=== PATIENT | male | born 1965 | race Caucasian/White ===

== ENCOUNTER 2021-03-05 00:01 | Inpatient (IN) | payer MEDICAID, SELFPAY ==
[~2021-03-05] VITALS: Ht 180.3 cm; Wt 86.2 kg
--- NOTE | 2021-03-05 00:01 | NUR ---
Patient to ER bed tent1 to gown for evaluation. Side rails up. Report given to self.
[2021-03-05 00:21] VITALS: BP_SYST 127
[2021-03-05] MEDS ORDERED: DEXAMETHASONE SOD PHOSPHATE 4 MG/ML VIAL IVP ONE (02:00)
[2021-03-05] MEDS ORDERED: cefTRIAXone 1 GM IVPB PREMIX 50 ML IV ONE (02:00)
[2021-03-05] MEDS ORDERED: AZITHROMYCIN 250 MG TABLET PO ONE (02:00)
--- NOTE | 2021-03-05 02:10 | NUR ---
Patient to ER bed 8 to gown for evaluation. Side rails up. Report given to self. # 20 gauge angiocath placed to LAC. Use of asceptic technique. Opsite placed over site. Blood return noted. Flushed with 10 cc of normal saline. No evidence of infiltration noted. Patient tolerated well.
[2021-03-05 02:22] LABS: BASOPHILS % (AUTO) 0.3 % (0.0-2.0); HEMATOCRIT 46.1 % (36-54); LYMPHOCYTES # (AUTO) 0.7 K/uL (1.0-5.5); LYMPHOCYTES % (AUTO) 13.7 % (20.5-51.5); MEAN CORPUSCULAR HEMOGLOBIN 33 pg (27-31); MEAN CORPUSCULAR HGB CONC 35 % (32-36); MEAN CORPUSCULAR VOLUME 95 fL (79.0-98.0); MONOCYTES # (AUTO) 0.6 K/uL (0.0-1.0); MONOCYTES % (AUTO) 12.5 % (1.7-9.3); NEUTROPHILS # (AUTO) 3.6 K/uL (1.8-7.7); NEUTROPHILS % (AUTO) 73.5 % (40.0-70.0); PLATELET COUNT (AUTO) 200 K/uL (130-430); RED BLOOD CELL COUNT(AUTO) 4.86 MIL/uL (4.2-6.2); RED CELL DISTRIBUTION WIDTH 13.2 % (9.0-15.0); WHITE BLOOD COUNT (AUTO) 4.8 K/uL (4.8-10.8)
[2021-03-05 02:29] LABS: CALCIUM 8.8 mg/dL (8.4-11.0); CREATININE 1.07 mg/dL (0.55-1.30)
--- NOTE | 2021-03-05 02:30 | NUR ---
Medicated w/ Zithromycin 500mg po, Rocephin 1gm ivpb, Decadron 6mg ivp per MD orders. IV abx infusing with no s/s of infiltration at this time. Will cont to monitor and observe for any adverse reaction.
[2021-03-05 02:37] LABS: ALBUMIN 3.6 g/dL (3.4-4.8); TOTAL BILIRUBIN 0.2 mg/dL (0.0-1.0)
[2021-03-05 02:44] LABS: C-REACTIVE PROTEIN QUANT 7.8 mg/dL (0-0.5)
[2021-03-05 02:47] LABS: INR 0.9 (0.80-1.20); PROTHROMBIN TIME 9.9 SECS (9.5-12.5)
--- NOTE | 2021-03-05 03:42 | NUR ---
IVF 0.9% NS infusing with no s/s of infiltration at this time. Will cont to monitor and observe for any adverse reaction. Bed to low position sr up, continue to monitor.
[2021-03-05] MEDS ORDERED: NACL 0.9% 1,000 ML IV ONE (03:45)
[2021-03-05] MEDS ORDERED: ACETAMINOPHEN 325 MG TABLET PO ONE (05:00)
--- NOTE | 2021-03-05 05:06 | NUR ---
Medicated w/ tylenol 650mg per MD orders. IVF 0.9% NS infusing with no s/s of infiltration at this time. Will cont to monitor and observe for any adverse reaction. Bed to low position sr up. Patient medicated for h/a 11/16.
[2021-03-05] MEDS ORDERED: ACETAMINOPHEN 325 MG TABLET ONE (05:07)
--- NOTE | 2021-03-05 07:15 | NUR ---
report received from Anup REYNA. pt is currently sleeping on the [employer]. Current o2 sat is 94% on 2l nc. pt is admitted to tele unit. currently waiting for bed assignment
--- NOTE | 2021-03-05 08:10 | NUR ---
pt having breakfast in bed
--- NOTE | 2021-03-05 11:00 | NUR ---
pt is currently sleeping in bed
--- NOTE | 2021-03-05 17:00 | NUR ---
Pt transfered to hospital bed
--- NOTE | 2021-03-05 17:18 | NUR ---
Called dietary to request dinner tray for patient
--- NOTE | 2021-03-05 18:10 | NUR ---
pt is currently resting in bed.
--- NOTE | 2021-03-05 19:29 | NUR ---
report given to Jolanta Harmon. Pt is sleeping in bed
--- NOTE | 2021-03-05 20:00 | NUR ---
MEDICATIONS ADMINISTERED ORDERED.
[2021-03-05] MEDS: LEVOFLOXACIN IN DEXTROSE 5 % 100 ML IV SCH (20:08)
[2021-03-05] MEDS: ENOXAPARIN SODIUM 30 MG/0.3 ML SYRINGE SUBCUT SCH (20:09)
[2021-03-05] MEDS ORDERED: LEVOFLOXACIN IN DEXTROSE 5 % 100 ML IV ONE (20:11)
[2021-03-05] MEDS ORDERED: ENOXAPARIN SODIUM 30 MG/0.3 ML SYRINGE ONE (20:11)
--- NOTE | 2021-03-05 22:00 | NUR ---
DINNER PROVIDED TO PATIENT. PT TOLERATED WELL.
--- NOTE | 2021-03-06 | NUR ---
Patient resting quietly. No acute distress noted. Vital signs within normal range.
[2021-03-06] MEDS ORDERED: DECADRON 4 MG TABLET PO SCH (02:00)
[2021-03-06] MEDS ORDERED: DECADRON 4 MG TABLET ONE (02:15)
--- NOTE | 2021-03-06 02:22 | NUR ---
Transfer to TELE via ACLS protocol. Licensed nurse present. IV present no signs or symptoms of infiltration.
--- NOTE | 2021-03-06 02:37 | NUR ---
Admission Note Received patient from ER with diagnosis of SEPSIS, PNA. Initial Plan of Care discussed-patient verbalized understanding. Oriented to room, call light, pain management and safety.
[2021-03-06 02:58] VITALS: BP_SYST 119
--- NOTE | 2021-03-06 03:22 | NUR ---
CONSULTATION PAGED/CALLED Reason for Consultation: SEPSIS Person Who was Notified: ZACKARY Consulting Physician: JOHN CHAVARRIA POWER PLANT OPERATOR APPRENTICE Liability Claims Examiner Specialty: Ordering Physician: Raudel MUNOZ
--- NOTE | 2021-03-06 06:22 | NUR ---
CLOSING NOTE PATIENT IN BED, SLEEPING, NO S/S OF ACUTE DISTRESS NOTED. BREATHING EVEN AND UNLABORED. HOB RAISED. IV SITE PATENT. NO S/S OF INFILTRATION OR INFECTION NOTED. ALL NEEDS MET. FALL, SAFETY, AND ISOLATION PRECAUTIONS MAINTAINED THROUGHOUT SHIFT. WILL CONTINUE TO MONITOR UNTIL PATIENT CARE IS ENDORSED TO ONCOMING DAYSHIFT NURSE.
[2021-03-06] MEDS: ENOXAPARIN SODIUM 30 MG/0.3 ML SYRINGE SUBCUT SCH (11:06)
[2021-03-06 12:18] VITALS: BP_SYST 116
[2021-03-06] MEDS ORDERED: LORazepam 2 MG/ML VIAL IVP PRN (12:45)
[2021-03-06] MEDS ORDERED: AZITHROMYCIN 500 MG in NS 250 ML IV SCH (12:45)
[2021-03-06] MEDS ORDERED: NALOXONE HCL 0.4 MG/ML AMP (NARCAN) IVP PRN ×2 (12:45)
[2021-03-06] MEDS ORDERED: HYDROcodone/ACETAMIN 5-325 MG TAB (NORCO/ VICODIN) PO PRN (12:45)
[2021-03-06] MEDS ORDERED: cefTRIAXone 1 GM IVPB PREMIX 50 ML IV SCH (12:45)
[2021-03-06] MEDS ORDERED: ONDANSETRON HCL 4 MG/2 ML VIAL IVP PRN (12:45)
[2021-03-06 13:21] VITALS: BP_SYST 119
[2021-03-06] MEDS: IPRATROPIUM BROM 0.5 MG/2.5 ML VIAL.NEB (ATROVENT) INH SCH ×2 (15:00→19:00)
[2021-03-06] MEDS: ALBUTEROL SULFATE 0.083% 2.5 MG/3 ML VIAL.NEB INH SCH ×2 (15:00→19:00)
[2021-03-06] MEDS: AZITHROMYCIN 500 MG in NS 250 ML IV SCH (15:19)
[2021-03-06] MEDS: DEXAMETHASONE SOD PHOSPHATE 10 MG/ML VIAL IVP SCH (15:20)
[2021-03-06] MEDS: CEFTRIAXONE SOD 1 GM/ D5W 50 ML IV SCH ×2 (15:25)
[2021-03-06 16:13] VITALS: BP_SYST 125
--- NOTE | 2021-03-06 19:04 | NUR ---
no respiratory distress noted the whole shift satting 95%. on 2 L via nasal cannula. .ambulatory to his needs. afebrile.
[2021-03-06 20:30] VITALS: BP_SYST 137
[2021-03-06] MEDS: LEVOFLOXACIN IN DEXTROSE 5 % 100 ML IV SCH (20:55)
--- NOTE | 2021-03-06 21:15 | NUR ---
Regular po diet tolerating patient awake alert verbally indicative ambulates to Rest Room as needed steady gait procedures explained .
[2021-03-06] MEDS: ALBUTEROL MDI INHALATION 8 GM INH INH SCH (23:00)
--- NOTE | 2021-03-07 | NUR ---
patient awake using bed side urinal clear yellow urine noted .
[2021-03-07 01:15] VITALS: BP_SYST 131
[2021-03-07] MEDS: ALBUTEROL MDI INHALATION 8 GM INH INH SCH ×6 (03:00→23:00)
[2021-03-07] MEDS: NORMAL SALINE 5 ML DISP.SYRIN IVF SCH ×4 (03:39→20:35)
--- NOTE | 2021-03-07 03:51 | NUR ---
Hourly Rounding patient Resting call conrad given to patient chest movement symmetrical Respirations Regular also unlabored .
--- NOTE | 2021-03-07 05:22 | NUR ---
Patient Resting this hour does use the urinal as needed , patient ambulates for BRP , no SOB noted .
--- NOTE | 2021-03-07 07:45 | NUR ---
OPENING NOTES: RECEIVED REPORT FROM VICE PRESIDENT REGULATORY NURSE. PATIENT IS AWAKE LAYING DOWN IN BED. TOLERATED OXYGEN O2L NASAL CANNULA WITH NO DISTRESS NOTED. IV LINE PATENT AND INTACT WITH NO INFILTRATION NOTED. PATIENT STABLE AT THIS TIME. SAFETY, FALL, AND ASPIRATION PRECAUTIONS ARE IN PLACE. BED LOCKED IN LOWEST POSITION AND CALL LIGHT IN REACH. WILL CONTINUE TO MONITOR PATIENT FOR ANY CHANGES.
[2021-03-07 07:52] LABS: CALCIUM 8.3 mg/dL (8.4-11.0); CREATININE 0.84 mg/dL (0.55-1.30); POTASSIUM 4.1 mmol/L (3.5-5.1)
[2021-03-07 07:55] LABS: BASOPHILS % (AUTO) 0.1 % (0.0-2.0); HEMATOCRIT 46.4 % (36-54); HEMOGLOBIN 16.1 g/dL (14.0-18.0); LYMPHOCYTES # (AUTO) 0.9 K/uL (1.0-5.5); LYMPHOCYTES % (AUTO) 13.4 % (20.5-51.5); MEAN CORPUSCULAR HEMOGLOBIN 32 pg (27-31); MEAN CORPUSCULAR HGB CONC 35 % (32-36); MEAN CORPUSCULAR VOLUME 93 fL (79.0-98.0); MONOCYTES # (AUTO) 0.5 K/uL (0.0-1.0); MONOCYTES % (AUTO) 7.1 % (1.7-9.3); NEUTROPHILS # (AUTO) 5.4 K/uL (1.8-7.7); NEUTROPHILS % (AUTO) 79.4 % (40.0-70.0); PLATELET COUNT (AUTO) 224 K/uL (130-430); RED BLOOD CELL COUNT(AUTO) 4.98 MIL/uL (4.2-6.2); RED CELL DISTRIBUTION WIDTH 13.3 % (9.0-15.0); WHITE BLOOD COUNT (AUTO) 6.8 K/uL (4.8-10.8)
[2021-03-07 08:00] VITALS: BP_SYST 128
[2021-03-07] MEDS: ENOXAPARIN SODIUM 30 MG/0.3 ML SYRINGE SUBCUT SCH (08:18)
[2021-03-07 12:00] VITALS: BP_SYST 126
[2021-03-07] MEDS: DEXAMETHASONE SOD PHOSPHATE 10 MG/ML VIAL IVP SCH (15:03)
[2021-03-07] MEDS: AZITHROMYCIN 500 MG in NS 250 ML IV SCH (15:03)
[2021-03-07] MEDS: CEFTRIAXONE SOD 1 GM/ D5W 50 ML IV SCH ×2 (15:06)
[2021-03-07 16:06] VITALS: BP_SYST 99
--- NOTE | 2021-03-07 17:00 | NUR ---
PATIENT TEMPERATURE IS 101.2 ICE PACK AND TYLENOL GIVEN ORDERED. WILL RECHECK IN AN HOUR.
[2021-03-07] MEDS: ACETAMINOPHEN 325 MG TABLET PO PRN ×2 (17:19→20:35)
--- NOTE | 2021-03-07 18:00 | NUR ---
PATIENT TEMPERATURE IS 97.8. WILL CONTINUE TO MONITOR PATIENT.
--- NOTE | 2021-03-07 18:45 | NUR ---
CLOSING NOTES: PATIENT IS AWAKE LAYING DOWN IN BED. TOLERATED OXYGEN O2L NASAL CANNULA WITH NO DISTRESS NOTED. IV LINE PATENT AND INTACT WITH NO INFILTRATION NOTED. PATIENT STABLE AT THIS TIME. SAFETY, FALL, AND ASPIRATION PRECAUTIONS REMAINED IN PLACE. BED LOCKED IN LOWEST POSITION AND CALL LIGHT IN REACH. WILL ENDORSE PATIENT CARE TO ONCOMING WAX CUTTER NURSE.
[2021-03-07 20:30] VITALS: BP_SYST 131
[2021-03-07] MEDS: LEVOFLOXACIN IN DEXTROSE 5 % 100 ML IV SCH (20:36)
--- NOTE | 2021-03-07 22:15 | NUR ---
LEVAQUIN 500 MG IVPB administer as ordered no s/sx of adverse Reaction noted skin Rash free dry warm .
--- NOTE | 2021-03-08 | NUR ---
TYLENOL 650 MG po administer for general pain 09/16 and helpful .
[2021-03-08] MEDS: ALBUTEROL MDI INHALATION 8 GM INH INH SCH ×6 (03:00→23:00)
--- NOTE | 2021-03-08 03:01 | NUR ---
Hourly Rounding patient awake using the urinal as needed call conrad given to patient Respirations Remain Regular also unlabored / .
[2021-03-08 07:22] LABS: BASOPHILS % (AUTO) 0.3 % (0.0-2.0); HEMATOCRIT 48.7 % (36-54); HEMOGLOBIN 16.7 g/dL (14.0-18.0); LYMPHOCYTES # (AUTO) 0.6 K/uL (1.0-5.5); LYMPHOCYTES % (AUTO) 14.1 % (20.5-51.5); MEAN CORPUSCULAR HEMOGLOBIN 32 pg (27-31); MEAN CORPUSCULAR HGB CONC 34 % (32-36); MEAN CORPUSCULAR VOLUME 94 fL (79.0-98.0); MONOCYTES # (AUTO) 0.6 K/uL (0.0-1.0); MONOCYTES % (AUTO) 14.1 % (1.7-9.3); NEUTROPHILS # (AUTO) 3.2 K/uL (1.8-7.7); NEUTROPHILS % (AUTO) 71.5 % (40.0-70.0); PLATELET COUNT (AUTO) 203 K/uL (130-430); RED CELL DISTRIBUTION WIDTH 13.2 % (9.0-15.0); WHITE BLOOD COUNT (AUTO) 4.5 K/uL (4.8-10.8)
[2021-03-08] MEDS: NORMAL SALINE 5 ML DISP.SYRIN IVF SCH ×3 (07:25→21:27)
[2021-03-08 08:16] LABS: ALBUMIN 2.9 g/dL (3.4-4.8); C-REACTIVE PROTEIN QUANT 5.9 mg/dL (0-0.5); CALCIUM 8.9 mg/dL (8.4-11.0); CREATININE 0.78 mg/dL (0.55-1.30); TOTAL BILIRUBIN 0.4 mg/dL (0.0-1.0)
--- NOTE | 2021-03-08 08:20 | NUR ---
Opening note Patient is resting in bed A&Ox 4 no complaint of pain or discomfort, no signs or symptoms of respiratory distress, patient is on 3L nasal cannula tolerating well. IV is patent no signs or symptoms of infiltration. Educated patient on plan of care, patient verbalized understanding. Bed is in lowest position, call light within reach, droplet, fall and aspiration precautions are in place, will continue to monitor.
[2021-03-08] MEDS: ENOXAPARIN SODIUM 30 MG/0.3 ML SYRINGE SUBCUT SCH (08:28)
[2021-03-08 10:55] LABS: ERYTHROCYTE SEDIMENTATION RATE 41 MM/HR (0-15)
[2021-03-08] MEDS: ACETAMINOPHEN 325 MG TABLET PO PRN (11:38)
[2021-03-08 12:00] VITALS: BP_SYST 127
[2021-03-08] MEDS ORDERED: IVERMECTIN 3 MG TABLET PO ONE (12:00)
--- NOTE | 2021-03-08 12:00 | NUR ---
Rn note Patients temperature is 100.3, provided prn medication. Will reassess.
--- NOTE | 2021-03-08 13:05 | NUR ---
Rn note Patients temperature is no 98, will continue to monitor.
[2021-03-08] MEDS: DEXAMETHASONE SOD PHOSPHATE 10 MG/ML VIAL IVP SCH (13:19)
[2021-03-08] MEDS: AZITHROMYCIN 500 MG in NS 250 ML IV SCH (14:20)
[2021-03-08] MEDS: CEFTRIAXONE SOD 1 GM/ D5W 50 ML IV SCH ×2 (15:52)
[2021-03-08 16:00] VITALS: BP_SYST 105
--- NOTE | 2021-03-08 18:30 | NUR ---
Opening note Patient is resting in bed A&Ox 4 no complaint of pain or discomfort, no signs or symptoms of respiratory distress, patient is on 3L nasal cannula tolerating well. IV is patent no signs or symptoms of infiltration. All needs were met. Bed is in lowest position, call light within reach, droplet, fall and aspiration precautions are in place, will endorse report to sales project manager.
--- NOTE | 2021-03-08 21:05 | NUR ---
Patient awake sitting up in Bed Regular po diet tolerating Water po encouraged tolerating Patient using bedside urinal as needed / .
[2021-03-08] MEDS: HYDROcodone/ACETAMIN 10-325 MG TAB PO PRN (21:26)
[2021-03-08] MEDS: LEVOFLOXACIN IN DEXTROSE 5 % 100 ML IV SCH (21:27)
[2021-03-09] VITALS (7 sets, daily range): BP systolic 111–141
--- NOTE | 2021-03-09 | NUR ---
NORCO TABLET PO 10/325 MG PO administer for acute pain & helpful , patient Resting .
--- NOTE | 2021-03-09 01:01 | NUR ---
Hourly Rounding patient Resting call conrad given to patient chest movement symmetrical no use of accessory muscles Respirations Remain regular & unlabored / .
[2021-03-09] MEDS: ALBUTEROL MDI INHALATION 8 GM INH INH SCH ×6 (02:53→23:00)
--- NOTE | 2021-03-09 02:53 | NUR ---
patient RESTING verbally Responsive skin dry warm no complaints made .
[2021-03-09] MEDS: NORMAL SALINE 5 ML DISP.SYRIN IVF SCH ×3 (05:56→20:48)
--- NOTE | 2021-03-09 07:02 | NUR ---
Hourly Rounding patient Resting verbally Responsive call conrad with patient using urinal as needed Respirations Remain Regular also unlabored / .
--- NOTE | 2021-03-09 08:00 | NUR ---
Initial note: Patient is alert, oriented x4, states having headache. Will check for medication for fever. He is on Oxygen 2 L/M via N/C, no sign of distress. Will continue monitor.
[2021-03-09] MEDS: ENOXAPARIN SODIUM 30 MG/0.3 ML SYRINGE SUBCUT SCH (08:06)
[2021-03-09] MEDS: ACETAMINOPHEN 325 MG TABLET PO PRN ×2 (08:33→15:11)
--- NOTE | 2021-03-09 10:00 | NUR ---
ID calls: Dr. Leon has called , and asked about patient's condition. MD is aware that patient has fever this morning. Then states he will put some new orders, including Sputum C/S collection.
[2021-03-09 11:40] LABS: BASOPHILS % (AUTO) 0.1 % (0.0-2.0); HEMATOCRIT 42.3 % (36-54); HEMOGLOBIN 14.5 g/dL (14.0-18.0); LYMPHOCYTES # (AUTO) 0.8 K/uL (1.0-5.5); LYMPHOCYTES % (AUTO) 13.9 % (20.5-51.5); MEAN CORPUSCULAR HEMOGLOBIN 32 pg (27-31); MEAN CORPUSCULAR HGB CONC 34 % (32-36); MEAN CORPUSCULAR VOLUME 93 fL (79.0-98.0); MONOCYTES # (AUTO) 0.5 K/uL (0.0-1.0); NEUTROPHILS # (AUTO) 4.1 K/uL (1.8-7.7); PLATELET COUNT (AUTO) 202 K/uL (130-430); RED BLOOD CELL COUNT(AUTO) 4.55 MIL/uL (4.2-6.2); RED CELL DISTRIBUTION WIDTH 12.9 % (9.0-15.0); WHITE BLOOD COUNT (AUTO) 5.4 K/uL (4.8-10.8)
[2021-03-09] MEDS: DEXAMETHASONE SOD PHOSPHATE 10 MG/ML VIAL IVP SCH (13:33)
[2021-03-09] MEDS: AZITHROMYCIN 500 MG in NS 250 ML IV SCH (13:33)
[2021-03-09] MEDS: CEFTRIAXONE SOD 1 GM/ D5W 50 ML IV SCH ×2 (14:45)
--- NOTE | 2021-03-09 18:40 | NUR ---
Closing note: Patient is stable, on Oxygen 3 L/M via NC, no sign of distress. He is tolerates regular diet well, no N/V. He has fever twice and made Addendum: 03/09/21 at 1842 by Gael Dumont RN Patient has had fever twice , Tylenol given as PRN ordered. made aware.
--- NOTE | 2021-03-09 19:30 | NUR ---
Opening note Received report from day shift RN. Pt is sleeping. No s/s of respiratory distress. On 3L NC, tolerating well. IV site is intact and patent. Fall and safety precautions are in place with bed in lowest position and call light within reach. Will continue to monitor.
[2021-03-09] MEDS: COLCHICINE 0.6 MG TABLET PO SCH (20:48)
[2021-03-10] VITALS: BP_SYST 121
--- NOTE | 2021-03-10 00:15 | NUR ---
RN rounds Pt is sleeping. No s/s of respiratory distress. No needs at this time. Fall and safety precautions in place. Will continue to monitor
--- NOTE | 2021-03-10 04:30 | NUR ---
RN rounds Pt is still sleeping. No s/s of respiratory distress. Will continue to monitor
[2021-03-10] MEDS: NORMAL SALINE 5 ML DISP.SYRIN IVF SCH ×3 (06:38→21:22)
--- NOTE | 2021-03-10 06:39 | NUR ---
Closing notes Pt is awake lying in bed asking for apple juice. No s/s of respiratory distress. Still on 3L NC, tolerating well. Fall and safety precautions are in place. IV site is intact and patent. All needs met throughout shift. Will continue to monitor until endorsed to day shift RN.
[2021-03-10 07:28] LABS: BASOPHILS % (AUTO) 0.1 % (0.0-2.0); HEMATOCRIT 43.9 % (36-54); HEMOGLOBIN 15.2 g/dL (14.0-18.0); LYMPHOCYTES # (AUTO) 0.6 K/uL (1.0-5.5); MEAN CORPUSCULAR HEMOGLOBIN 32 pg (27-31); MEAN CORPUSCULAR HGB CONC 35 % (32-36); MEAN CORPUSCULAR VOLUME 94 fL (79.0-98.0); MONOCYTES # (AUTO) 0.6 K/uL (0.0-1.0); NEUTROPHILS # (AUTO) 4.9 K/uL (1.8-7.7); NEUTROPHILS % (AUTO) 79.9 % (40.0-70.0); PLATELET COUNT (AUTO) 235 K/uL (130-430); WHITE BLOOD COUNT (AUTO) 6.1 K/uL (4.8-10.8)
--- NOTE | 2021-03-10 08:00 | NUR ---
PATIENT IN BED, NO S/S OF DISTRESS, ON 3L NASAL CANULA, TOLERATING WELL. WILL CONTINUE TO MONITOR
[2021-03-10] MEDS: ALBUTEROL MDI INHALATION 8 GM INH INH SCH ×4 (08:03→20:31)
[2021-03-10] MEDS: COLCHICINE 0.6 MG TABLET PO SCH ×2 (08:47→21:21)
[2021-03-10] MEDS: ENOXAPARIN SODIUM 30 MG/0.3 ML SYRINGE SUBCUT SCH (08:47)
[2021-03-10 09:24] LABS: ERYTHROCYTE SEDIMENTATION RATE 48 MM/HR (0-15)
[2021-03-10 11:00] LABS: CALCIUM 8.2 mg/dL (8.4-11.0); CREATININE 0.86 mg/dL (0.55-1.30); POTASSIUM 4.9 mmol/L (3.5-5.1)
[2021-03-10] MEDS: HYDROcodone/ACETAMIN 10-325 MG TAB PO PRN ×2 (11:38→21:35)
[2021-03-10 12:00] VITALS: BP_SYST 119
--- NOTE | 2021-03-10 12:00 | NUR ---
PATIENT IN BED, NO S/S OF DISTRESS, ON ROOM AIR, TOLERATING WELL. WILL CONTINUE TO MONITOR
[2021-03-10] MEDS: AZITHROMYCIN 500 MG in NS 250 ML IV SCH (14:17)
[2021-03-10] MEDS: DEXAMETHASONE SOD PHOSPHATE 10 MG/ML VIAL IVP SCH (14:18)
[2021-03-10 16:00] VITALS: BP_SYST 121
[2021-03-10] MEDS: CEFTRIAXONE SOD 1 GM/ D5W 50 ML IV SCH ×2 (16:00)
[2021-03-10] MEDS ORDERED: IVERMECTIN 3 MG TABLET PO ONE (18:45)
--- NOTE | 2021-03-10 19:30 | NUR ---
Opening note Received report from day shift RN. Pt is sleeping in bed. On 3L NC and is tolerating well. No s/s of distress. IV site is intact and patent. Bed is in lowest position and call light within reach. Will continue to monitor.
[2021-03-10 20:00] VITALS: BP_SYST 129
[2021-03-11] VITALS: BP_SYST 113
--- NOTE | 2021-03-11 00:16 | NUR ---
RN rounds Pt is sleeping. No s/s of respiratory distress. Breathing is even and unlabored. Vital signs are stable. No needs at this time. Will continue to monitor.
--- NOTE | 2021-03-11 03:39 | NUR ---
RN rounds Pt is still sleeping. No s/s of respiratory distress. No needs at this time. Will continue to monitor
[2021-03-11] MEDS: NORMAL SALINE 5 ML DISP.SYRIN IVF SCH ×3 (05:26→21:25)
--- NOTE | 2021-03-11 06:43 | NUR ---
Closing notes Pt is sleeping. No s/s of respiratory distress. On 3L nasal cannula, tolerating well. Breathing is even and unlabored. IV site is intact and patent. Fall and safety precautions are in place with bed in lowest position and call light within reach. Will continue to monitor until endorsed to day shift
[2021-03-11 06:46] LABS: BASOPHILS % (AUTO) 0.1 % (0.0-2.0); HEMATOCRIT 42.9 % (36-54); HEMOGLOBIN 14.7 g/dL (14.0-18.0); LYMPHOCYTES # (AUTO) 0.5 K/uL (1.0-5.5); MEAN CORPUSCULAR HEMOGLOBIN 32 pg (27-31); MEAN CORPUSCULAR HGB CONC 34 % (32-36); MEAN CORPUSCULAR VOLUME 93 fL (79.0-98.0); MONOCYTES # (AUTO) 0.6 K/uL (0.0-1.0); MONOCYTES % (AUTO) 7.7 % (1.7-9.3); NEUTROPHILS # (AUTO) 6.3 K/uL (1.8-7.7); NEUTROPHILS % (AUTO) 85.2 % (40.0-70.0); PLATELET COUNT (AUTO) 267 K/uL (130-430); RED CELL DISTRIBUTION WIDTH 13.2 % (9.0-15.0); WHITE BLOOD COUNT (AUTO) 7.4 K/uL (4.8-10.8)
[2021-03-11 07:19] LABS: C-REACTIVE PROTEIN QUANT 8.9 mg/dL (0-0.5); CALCIUM 8.3 mg/dL (8.4-11.0); CREATININE 0.68 mg/dL (0.55-1.30); POTASSIUM 4.4 mmol/L (3.5-5.1)
[2021-03-11] MEDS: ALBUTEROL MDI INHALATION 8 GM INH INH SCH ×5 (07:33→23:56)
--- NOTE | 2021-03-11 07:45 | NUR ---
PATIENT IN BED, NO S/S OF DISTRESS, PATIENT IS ON 3L NASAL CANULA SATURATION ABOVE 93%, NO REPORTED PAIN OR DISCOMFORT AT THIS TIME, AMBULATES TO RESTROOM WITH STAND BY ASSIST, BED IN LOWEST LOCKED POSITION, SAFETY MEASURES IN PLACE, CALL LIGHT WITHIN REACH, IV INTACT PATENT, WILL CONTINUE TO MONITOR.
[2021-03-11] MEDS: COLCHICINE 0.6 MG TABLET PO SCH ×2 (08:31→21:25)
[2021-03-11] MEDS: ENOXAPARIN SODIUM 30 MG/0.3 ML SYRINGE SUBCUT SCH (08:32)
--- NOTE | 2021-03-11 09:00 | NUR ---
PATIENT OXYGEN SATURATION CHECKED IS 84-87% ON 6L NASAL CANULA, CALLED RT TO GIVE BREATHING TREATMENT AND INCREASE OXYGEN DELIVERY.
--- NOTE | 2021-03-11 09:30 | NUR ---
RT INCREASED PATIENT OXYGEN DELIVERY TO HIGHFLOW 10L NASAL CANULA, PATIENT IS 90-91% OXYGEN SATURATION, ASKED FOR NORCO, TOLD WILL WAIT SINCE SATURATION IS STILL BORDERLINE LOW.
--- NOTE | 2021-03-11 12:00 | NUR ---
patient in bed no s/s of distress
[2021-03-11 12:01] LABS: ERYTHROCYTE SEDIMENTATION RATE 62 MM/HR (0-15)
[2021-03-11 12:02] VITALS: BP_SYST 128
[2021-03-11] MEDS: CEFTRIAXONE SOD 1 GM/ D5W 50 ML IV SCH ×2 (15:08)
[2021-03-11] MEDS: DEXAMETHASONE SOD PHOSPHATE 10 MG/ML VIAL IVP SCH (15:09)
--- NOTE | 2021-03-11 16:00 | NUR ---
patient stated felt hot, checked temp had fever 100.9
[2021-03-11 16:08] VITALS: BP_SYST 140
[2021-03-11] MEDS: ACETAMINOPHEN 325 MG TABLET PO PRN (17:35)
[2021-03-11 19:30] VITALS: BP_SYST 133
--- NOTE | 2021-03-11 19:30 | NUR ---
Opening note Pt is awake watching TV and eating dinner. No s/s of acute distress. IV site is intact and patent. Bed is in lowest position with call light within reach. Will continue to monitor
--- NOTE | 2021-03-12 00:30 | NUR ---
RN rounds Pt is sleeping. No s/s of respiratory distress. Breathing is even and unlabored. Will continue to monitor
[2021-03-12 01:03] VITALS: BP_SYST 123
--- NOTE | 2021-03-12 05:00 | NUR ---
RN rounds Pt is still sleeping. No s/s of respiratory distress. Bed is locked and in lowest position with call light within reach. Will continue to monitor
[2021-03-12] MEDS: NORMAL SALINE 5 ML DISP.SYRIN IVF SCH ×3 (05:03→21:47)
--- NOTE | 2021-03-12 06:00 | NUR ---
Pt in distress, changed to nonrebreather mask 15L O2, tolerating well
[2021-03-12 07:05] VITALS: BP_SYST 140
--- NOTE | 2021-03-12 07:25 | NUR ---
OPENING NOTES: RECEIVED PATIENT FROM AIRCRAFT LOG CLERK NURSE. PATIENT IS AWAKE LAYING DOWN IN BED. TOLERATED OXYGEN ON NON-REBREATHER MASK 15L WITH NO DISTRESS NOTED. IV LINE PATENT AND INTACT WITH NO INFILTRATION NOTED. PATIENT STABLE AT THIS TIME. SAFETY, FALL, AND ASPIRATION PRECAUTIONS ARE IN PLACE. BED LOCKED IN LOWEST POSITION AND CALL LIGHT IN REACH. WILL CONTINUE TO MONITOR PATIENT FOR ANY CHANGES.
[2021-03-12] MEDS: ALBUTEROL MDI INHALATION 8 GM INH INH SCH ×4 (07:30→22:24)
[2021-03-12 07:57] LABS: BASOPHILS % (AUTO) 0.1 % (0.0-2.0); HEMOGLOBIN 14.4 g/dL (14.0-18.0); LYMPHOCYTES # (AUTO) 0.4 K/uL (1.0-5.5); LYMPHOCYTES % (AUTO) 2.9 % (20.5-51.5); MEAN CORPUSCULAR HEMOGLOBIN 32 pg (27-31); MEAN CORPUSCULAR HGB CONC 34 % (32-36); MEAN CORPUSCULAR VOLUME 94 fL (79.0-98.0); MONOCYTES # (AUTO) 0.5 K/uL (0.0-1.0); NEUTROPHILS # (AUTO) 12.5 K/uL (1.8-7.7); PLATELET COUNT (AUTO) 305 K/uL (130-430); RED CELL DISTRIBUTION WIDTH 13.3 % (9.0-15.0); WHITE BLOOD COUNT (AUTO) 13.4 K/uL (4.8-10.8)
[2021-03-12 08:00] VITALS: BP_SYST 110
[2021-03-12 08:13] LABS: ALBUMIN 2.5 g/dL (3.4-4.8); CALCIUM 8.6 mg/dL (8.4-11.0); CREATININE 0.9 mg/dL (0.55-1.30); POTASSIUM 4.5 mmol/L (3.5-5.1); TOTAL BILIRUBIN 0.3 mg/dL (0.0-1.0)
[2021-03-12] MEDS: ENOXAPARIN SODIUM 30 MG/0.3 ML SYRINGE SUBCUT SCH (09:17)
[2021-03-12] MEDS: COLCHICINE 0.6 MG TABLET PO SCH ×2 (09:17→21:46)
[2021-03-12 11:04] LABS: ERYTHROCYTE SEDIMENTATION RATE 79 MM/HR (0-15)
[2021-03-12] MEDS: FLUCONAZOLE 200 mg/ NS 100 ML IV SCH (11:31)
[2021-03-12 12:10] VITALS: BP_SYST 108
[2021-03-12 12:40] LABS: C-REACTIVE PROTEIN QUANT 20.2 mg/dL (0-0.5)
[2021-03-12] MEDS: DEXAMETHASONE SOD PHOSPHATE 10 MG/ML VIAL IVP SCH (13:01)
--- NOTE | 2021-03-12 13:57 | NUR ---
Patient referred to [facility]'s insurance not accepted by [facility]-Dr Ibanez notified.
[2021-03-12] MEDS: CEFTRIAXONE SOD 1 GM/ D5W 50 ML IV SCH ×2 (14:01)
--- NOTE | 2021-03-12 15:20 | NUR ---
INSTRUCTED PATIENT TO DO PRONING, SIDE POSITION, USE OF SPIROMETER TO FACILITATE BREATHING EXERCISES. PATIENT VERBALIZED UNDERSTANDING. WILL CONTINUE TO MONITOR PATIENT.
[2021-03-12 16:07] VITALS: BP_SYST 106
--- NOTE | 2021-03-12 18:35 | NUR ---
CLOSING NOTES: PATIENT IS AWAKE LAYING DOWN IN BED. TOLERATED OXYGEN ON NON-REBREATHER MASK 15L WITH NO DISTRESS NOTED. IV LINE PATENT AND INTACT WITH NO INFILTRATION NOTED. PATIENT STABLE AT THIS TIME. SAFETY, FALL, AND ASPIRATION PRECAUTIONS REMAINED IN PLACE. BED LOCKED IN LOWEST POSITION AND CALL LIGHT IN REACH. WILL ENDORSE PATIENT CARE TO ONCOMING AREA REPRESENTATIVE NURSE.
--- NOTE | 2021-03-12 19:35 | NUR ---
ROUNDS PATIENT RESTING COMFORTABLY IN BED, NOT IN DISTRESS, DENIES PAIN AT THIS TIME. ASSESSMENT DONE AND DOCUEMNTED. SEE FLOWSHEET. NEEDS ATTENDED TO. SAFETY MEASURES IN PLACED. CALL LIGHT PLACED WITHIN REACH.
--- NOTE | 2021-03-13 00:13 | NUR ---
PATIENT RESTING: Patient resting quietly. No acute distress noted. Vital signs within normal range.
[2021-03-13 00:14] VITALS: BP_SYST 116
[2021-03-13] MEDS: ACETAMINOPHEN 325 MG TABLET PO PRN (06:00)
[2021-03-13] MEDS: NORMAL SALINE 5 ML DISP.SYRIN IVF SCH ×3 (06:08→22:00)
[2021-03-13 07:43] LABS: BASOPHILS % (AUTO) 0.2 % (0.0-2.0); HEMATOCRIT 42.6 % (36-54); HEMOGLOBIN 14.5 g/dL (14.0-18.0); LYMPHOCYTES # (AUTO) 0.5 K/uL (1.0-5.5); LYMPHOCYTES % (AUTO) 2.8 % (20.5-51.5); MEAN CORPUSCULAR HEMOGLOBIN 32 pg (27-31); MEAN CORPUSCULAR HGB CONC 34 % (32-36); MEAN CORPUSCULAR VOLUME 94 fL (79.0-98.0); MONOCYTES # (AUTO) 0.6 K/uL (0.0-1.0); MONOCYTES % (AUTO) 3.3 % (1.7-9.3); NEUTROPHILS # (AUTO) 17.6 K/uL (1.8-7.7); NEUTROPHILS % (AUTO) 93.7 % (40.0-70.0); PLATELET COUNT (AUTO) 352 K/uL (130-430); RED BLOOD CELL COUNT(AUTO) 4.54 MIL/uL (4.2-6.2); RED CELL DISTRIBUTION WIDTH 13.6 % (9.0-15.0)
[2021-03-13 08:03] LABS: WHITE BLOOD COUNT (AUTO) 18.8 K/uL (4.8-10.8)
--- NOTE | 2021-03-13 08:20 | NUR ---
AM ROUNDS: PATIENT AWAKE,ALERT AND ORIENTED X4. ON NON REBREATHER MASK,O2 SATURATION=88%.PER RT TO CHANGED TO HF WITH KJF7=646%.O2 SATURATION=92%. MOIST COUGH. CALL LIGHT WITH IN REACH. BED LOCKED AT LOWEST POSITION. CONTINUE TO MONITOR. Addendum: 03/13/21 at 1840 by Mary Jo Menezes RN PT ON CONTACT ISOLATION FOR DROPLET AND AIRBORNE FOR COVID 19 POSITIVE.PRECAUTION RENDERED.
[2021-03-13] MEDS: COLCHICINE 0.6 MG TABLET PO SCH ×2 (08:30→20:30)
[2021-03-13] MEDS: ENOXAPARIN SODIUM 30 MG/0.3 ML SYRINGE SUBCUT SCH (08:31)
[2021-03-13 08:34] LABS: CALCIUM 8.6 mg/dL (8.4-11.0); CREATININE 0.95 mg/dL (0.55-1.30); POTASSIUM 4.3 mmol/L (3.5-5.1)
[2021-03-13 08:43] LABS: C-REACTIVE PROTEIN QUANT 26.4 mg/dL (0-0.5)
--- NOTE | 2021-03-13 08:45 | NUR ---
RT NOTE: 0845 Pt placed on High-Flow Nasal Cannula (HFNC) at 45LPM, FiO2 100%. RN Melissa at bedside and aware of HFNC settings. Pt'S SpO2 is between 90-93%. Encouraged pt to use IS and take deep breaths, proning or at least laying on his side while napping or sleeping. Pt states that he understands. Will continue to monitor and titrate FiO2 as tolerated by pt. Addendum: 03/13/21 at 0856 by Alexandra Vega RT Amended: Links added.
[2021-03-13 08:47] VITALS: BP_SYST 102
[2021-03-13] MEDS: ALBUTEROL MDI INHALATION 8 GM INH INH SCH ×5 (08:52→23:20)
[2021-03-13 09:38] LABS: ERYTHROCYTE SEDIMENTATION RATE 76 MM/HR (0-15)
--- NOTE | 2021-03-13 10:10 | NUR ---
IV RE SITED: IV NOT WORKING.IV RE SITED USING G#20,IV ANTIBIOTIC GIVEN. Addendum: 03/13/21 at 1100 by Mary Jo Menezes RN ADDED NOTES: IV RE SITED AT LEFT FOREARM.
[2021-03-13] MEDS: FLUCONAZOLE 200 mg/ NS 100 ML IV SCH (10:11)
--- NOTE | 2021-03-13 10:50 | NUR ---
ID CALLED: UPDATES FOR PATIENT GIVEN TO DR LOPEZ AND RELAYED ELEVATED WBC RE:PT ON DECADRON IV.NO NEW ORDERS MADE.
[2021-03-13 12:30] VITALS: BP_SYST 112
[2021-03-13] MEDS: DEXAMETHASONE SOD PHOSPHATE 10 MG/ML VIAL IVP SCH (14:22)
[2021-03-13] MEDS: CEFTRIAXONE SOD 1 GM/ D5W 50 ML IV SCH ×2 (14:23)
[2021-03-13 16:30] VITALS: BP_SYST 92
--- NOTE | 2021-03-13 18:37 | NUR ---
END OF SHIFT: PATIENT STILL HAVING DINNER. MAINTAINED HIGH FLOW 45L/MIN,02 SATURATION=92%. STILL COUGHING DRY. IV TO SALINE LOCK IN PLACED. CALL LIGHT WITH IN REACH. BED LOCKED AT LOWEST POSITION.SAFETY MEASURES RENDERED. CONTINUE TO MONITOR.
[2021-03-13 20:00] VITALS: BP_SYST 104
--- NOTE | 2021-03-13 21:13 | NUR ---
MEDICATION DUE MEDICATION GIVEN SCHEDULED, TOLERATED WELL. WILL CONTINUE TO MONITOR.
[2021-03-14] VITALS: BP_SYST 107
--- NOTE | 2021-03-14 00:14 | NUR ---
PATIENT RESTING: Patient resting quietly. No acute distress noted. Vital signs within normal range.
[2021-03-14] MEDS: ALBUTEROL MDI INHALATION 8 GM INH INH SCH ×5 (03:00→22:15)
--- NOTE | 2021-03-14 06:55 | NUR ---
CLOSING NOTES PATIENT AWAKE, NO COMPLAINTS AT THIS TIME, VITALS STABLE. ALL NEEDS ATTENDED TO. SAFETY MEASURES MAINTAINED. CALL LIGHT PLACED WITHIN REACH.
--- NOTE | 2021-03-14 08:00 | NUR ---
AM ROUNDS: MAINTAINED PATIENT ON HIGH FLOW,WITH IYB3=990%,O2 SATURATION BETWEEN 91-92%.NON LABORED. IV SALINE LOCK.CALL LIGHT WITH IN REACH. BED LOCKED AT LOWEST POSITION. CONTACT ISOLATION PRECAUTION RENDERED.
[2021-03-14] MEDS: COLCHICINE 0.6 MG TABLET PO SCH ×2 (08:10→21:32)
[2021-03-14] MEDS: ENOXAPARIN SODIUM 30 MG/0.3 ML SYRINGE SUBCUT SCH (08:11)
[2021-03-14 08:27] VITALS: BP_SYST 108
[2021-03-14] MEDS: FLUCONAZOLE 200 mg/ NS 100 ML IV SCH (10:06)
[2021-03-14 12:51] VITALS: BP_SYST 104
[2021-03-14] MEDS: DEXAMETHASONE SOD PHOSPHATE 10 MG/ML VIAL IVP SCH (14:24)
[2021-03-14] MEDS: NORMAL SALINE 5 ML DISP.SYRIN IVF SCH ×2 (14:26→22:00)
[2021-03-14] MEDS: CEFTRIAXONE SOD 1 GM/ D5W 50 ML IV SCH ×2 (14:26)
--- NOTE | 2021-03-14 14:30 | NUR ---
BSC: PATIENT HAD A BOWEL MOVEMENT. CARE RENDERED.
[2021-03-14 16:03] VITALS: BP_SYST 106
--- NOTE | 2021-03-14 18:25 | NUR ---
END OF SHIFT: DINNER SERVED TO PATIENT. MAINTAINED HIGH FLOW WITH 45L/MIN,WNY5=652%. NON LABORED.O2 SATURATION BETWEEN 92-93%.PATIENT WATCHING TV. CALL LIGHT WITH IN REACH. BED LOCKED AT LOWEST POSITION. CONTINUE TO MONITOR.
--- NOTE | 2021-03-14 19:35 | NUR ---
ROUNDS PATIENT IN BED, WATCHING TV, ON HIGH FLOW O2 100%, DENIES PAIN AT THIS TIME. ASSESSMET MOON AND DOCUMENTED. SEE FLOWSHEET. NEEDS ATTENDED TO. SAFETY MEASURES IN PLACED. BED IN LOW AND LOCKED POSITION. CALL LIGHT PLACED WITHIN REACH.
[2021-03-14 20:00] VITALS: BP_SYST 108
[2021-03-15] VITALS (17 sets, daily range): BP systolic 105–134
--- NOTE | 2021-03-15 00:13 | NUR ---
ROUNDS PATIENT ASLEEP, NO SOB NOTED NOR PAIN AND DISCOMFORT, VITALS STABLE. WILL CONTINUE TO MONITOR.
[2021-03-15] MEDS: NORMAL SALINE 5 ML DISP.SYRIN IVF SCH ×3 (06:15→21:58)
--- NOTE | 2021-03-15 06:38 | NUR ---
CLOSING NOTES PATIENT AWAKE, WATCHING TV, NO COMPLAINTS AT THIS TIME, VITALS STABLE. REMINDED TO VOID IN THE URINAL FOR LAB SPECIMEN. NEEDS ATTENDED TO. CALL LIGHT PLACED WITHIN REACH.
[2021-03-15 06:48] LABS: BASOPHILS % (AUTO) 0.2 % (0.0-2.0); HEMATOCRIT 40.9 % (36-54); HEMOGLOBIN 14.2 g/dL (14.0-18.0); LYMPHOCYTES # (AUTO) 0.3 K/uL (1.0-5.5); LYMPHOCYTES % (AUTO) 2.3 % (20.5-51.5); MEAN CORPUSCULAR HEMOGLOBIN 33 pg (27-31); MEAN CORPUSCULAR HGB CONC 35 % (32-36); MEAN CORPUSCULAR VOLUME 94 fL (79.0-98.0); MONOCYTES # (AUTO) 0.7 K/uL (0.0-1.0); MONOCYTES % (AUTO) 4.9 % (1.7-9.3); NEUTROPHILS # (AUTO) 12.8 K/uL (1.8-7.7); NEUTROPHILS % (AUTO) 92.6 % (40.0-70.0); PLATELET COUNT (AUTO) 413 K/uL (130-430); RED BLOOD CELL COUNT(AUTO) 4.36 MIL/uL (4.2-6.2); RED CELL DISTRIBUTION WIDTH 13.6 % (9.0-15.0); WHITE BLOOD COUNT (AUTO) 13.8 K/uL (4.8-10.8)
[2021-03-15] MEDS: ALBUTEROL MDI INHALATION 8 GM INH INH SCH ×4 (08:08→19:50)
[2021-03-15] MEDS: COLCHICINE 0.6 MG TABLET PO SCH ×2 (08:30→21:51)
[2021-03-15] MEDS: ENOXAPARIN SODIUM 30 MG/0.3 ML SYRINGE SUBCUT SCH (08:31)
--- NOTE | 2021-03-15 08:40 | NUR ---
Note Dr Umana ([facility]) did rounds and stated pt needs to go to ICU now. Pt has not been feeling good and pt was put on High Flow O2 at 60L (100%) and on a non-rebreather mask. Report was given to MANAGER HI and pt being transported to ICU via wheelchair with RN and RT and O2. Pt was given 09am medications at this time. Addendum: 03/15/21 at 0843 by Elham Yeung RN Pt was notified of transfer to ICU before transfer to ICU.
--- NOTE | 2021-03-15 08:40 | NUR ---
rt notes 0840 pt moved to ICU 3, pt on max out high flow settings 60L/100% FIO2 + 15L NRB, pt saturating 80%. will continue to monitor pt. Assisted AXEL hummel in transport.
--- NOTE | 2021-03-15 08:48 | NUR ---
PHYSICAL THERAPY TREATMENT WILL BE HELD DUE TO PATIENT'S TRANSFER TO THE ICU. AWAIT ORDERS TO RESUME.
--- NOTE | 2021-03-15 09:30 | NUR ---
pt transfer from the floor to icu per physician pt having dyspnea even with oxygen on placed on hiflow with fio2 100% with a nonrebreather mask sating in the low 90's skin warm, dry and intact remains alert, awake, and oriented times four teaching given r/t his new surrounding, plan of care, comfort and safety with effect
[2021-03-15 10:04] LABS: ERYTHROCYTE SEDIMENTATION RATE 82 MM/HR (0-15)
[2021-03-15] MEDS ORDERED: TOCILIZUMAB 162 MG/0.9 ML SYRINGE SUBCUT ONE (10:15)
[2021-03-15] MEDS: FLUCONAZOLE 200 mg/ NS 100 ML IV SCH (10:48)
[2021-03-15 11:00] LABS: PROTHROMBIN TIME 10.7 SECS (9.5-12.5)
[2021-03-15 11:07] LABS: ALBUMIN 2.1 g/dL (3.4-4.8); C-REACTIVE PROTEIN QUANT 9.5 mg/dL (0-0.5); CALCIUM 8.6 mg/dL (8.4-11.0); CREATININE 0.75 mg/dL (0.55-1.30); POTASSIUM 4.3 mmol/L (3.5-5.1); TOTAL BILIRUBIN 0.7 mg/dL (0.0-1.0)
[2021-03-15] MEDS: DEXAMETHASONE SOD PHOSPHATE 10 MG/ML VIAL IVP SCH (14:00)
[2021-03-15] MEDS: CEFTRIAXONE SOD 1 GM/ D5W 50 ML IV SCH ×2 (15:02)
--- NOTE | 2021-03-15 15:49 | NUR ---
report given to charge nurse all questions answered pt condition remains stable and pt does have a new picc line in angelina double lumens ready for use
--- NOTE | 2021-03-15 16:00 | NUR ---
RICHARD PICC LINE PLACED BY PICC NURSE, VERIFIED WITH CHEST X-RAY.
--- NOTE | 2021-03-15 16:22 | NUR ---
CARES OBTAINED FROM OUTGOING RN.
--- NOTE | 2021-03-15 16:45 | NUR ---
ASSISTED PATIENT TO PRONE POSITION.
--- NOTE | 2021-03-15 17:30 | NUR ---
DINNER TRAY GIVEN TO PATIENT, ENCOURAGED PATIENT TO EAT, PATIENT REFUSED FOOD, LEFT TRAY AT BEDSIDE.
--- NOTE | 2021-03-15 18:00 | NUR ---
PATIENT REMOVES NRB MASK, OXYGEN SATURATION DECREASES RAPIDLY, EDUCATED PATIENT ON MASK AND HE PLACED MASK BACK ON.
--- NOTE | 2021-03-15 18:21 | NUR ---
PATIENT NEEDS CONSISTENT REINFORCEMENT ON OXYGEN USE AND MASK PLACEMENT.
--- NOTE | 2021-03-15 18:56 | NUR ---
CLOSING NOTE: REPORT GIVEN TO RN NOC NURSE USING SBAR FORMAT, ALL CARES ENDORSED.
--- NOTE | 2021-03-15 20:00 | NUR ---
AWAKE, ALERT, ORIENTED X4. IN NO APPARENT DISTRESS. DENIES PAIN. ON O2 AT 40 L/MIN HIGH FLOW + 100%MASK. RICHARD PICC LINE DRSG D/I. FERGUSON CATH PATENT DRAINING CLOUDY SEEMA URINE TO GRAVITY. STILL PICKING AND NIBBLING ON DINNER.
--- NOTE | 2021-03-15 22:00 | NUR ---
WATCHING TV. NASAL SWAB SENT TO LAB FOR MRSA.
[2021-03-16] VITALS (24 sets, daily range): BP systolic 94–148
--- NOTE | 2021-03-16 | NUR ---
AWAKE. REPOSITIONS SELF WELL. ASKED FOR MORE JUICE.
[2021-03-16] MEDS: ALBUTEROL MDI INHALATION 8 GM INH INH SCH ×6 (00:05→19:36)
--- NOTE | 2021-03-16 02:00 | NUR ---
1 SMALL STOOL DEFECATED VIA BEDPAN. DEANA-CARE GIVEN. BACK CARE, FERGUSON CARE, SKIN CARE, DONE. PARTIAL LINEN CHANGE. ASSISTS WITH TURNING. CARLEY PROCEDURE WELL.
--- NOTE | 2021-03-16 04:00 | NUR ---
DOZES ON AND OFF. DESATURATES AT TIMES. NO DISTRESS NOTED.
--- NOTE | 2021-03-16 06:00 | NUR ---
SLEPT INTERMITTENTLY. UO GOOD. OCCASIONALLY TAKES OFF O2. REMAINS IN GUARDED CONDITION.
[2021-03-16 06:39] LABS: HEMOGLOBIN 14.4 g/dL (14.0-18.0); LYMPHOCYTES # (AUTO) 0.4 K/uL (1.0-5.5); LYMPHOCYTES % (AUTO) 2.6 % (20.5-51.5); MEAN CORPUSCULAR HEMOGLOBIN 32 pg (27-31); MEAN CORPUSCULAR HGB CONC 34 % (32-36); MEAN CORPUSCULAR VOLUME 94 fL (79.0-98.0); MONOCYTES # (AUTO) 0.7 K/uL (0.0-1.0); MONOCYTES % (AUTO) 4.4 % (1.7-9.3); NEUTROPHILS # (AUTO) 15.5 K/uL (1.8-7.7); PLATELET COUNT (AUTO) 265 K/uL (130-430); RED BLOOD CELL COUNT(AUTO) 4.47 MIL/uL (4.2-6.2); RED CELL DISTRIBUTION WIDTH 13.4 % (9.0-15.0); WHITE BLOOD COUNT (AUTO) 16.7 K/uL (4.8-10.8)
--- NOTE | 2021-03-16 06:47 | NUR ---
Nutrition Update Cristhian Scale 16 noted. Pt admitted for Sepsis, Pneumonia Diet: Regular BMI: 26.5 kg/m2 RD to follow per nutrition care standards.
[2021-03-16 06:49] LABS: C-REACTIVE PROTEIN QUANT 17.7 mg/dL (0-0.5); CALCIUM 8.3 mg/dL (8.4-11.0); CREATININE 0.83 mg/dL (0.55-1.30); POTASSIUM 4.6 mmol/L (3.5-5.1)
[2021-03-16] MEDS: NORMAL SALINE 5 ML DISP.SYRIN IVF SCH ×3 (06:51→21:40)
--- NOTE | 2021-03-16 07:10 | NUR ---
SBAR report received from night nurse, all cares assumed. Pt lying in bed with eyes closed.
--- NOTE | 2021-03-16 07:47 | NUR ---
Dr. Ingram rounding on pt. New orders made for morphine 4 mg IVP Q4HR PRN for dyspnea or severe pain.
--- NOTE | 2021-03-16 07:48 | NUR ---
HIGH ALERT NOTE: Verified/repeat back order with Dr. Ingram in person, identified within the medical roster to verify physician authenticity.
[2021-03-16] MEDS ORDERED: DEXMEDETOMIDINE HCL 200 MCG in NS 48 ML IV PRN (08:00)
[2021-03-16] MEDS: COLCHICINE 0.6 MG TABLET PO SCH ×2 (09:06→21:39)
[2021-03-16] MEDS: ENOXAPARIN SODIUM 40 MG/0.4 ML SYRINGE SUBCUT SCH (09:07)
--- NOTE | 2021-03-16 09:30 | NUR ---
Proning Pt able to prone with minimal assistance, reason for proning explained. Pt cooperative. O2 sats immediately improved upon proning. Will continue to monitor.
[2021-03-16] MEDS: FLUCONAZOLE 200 mg/ NS 100 ML IV SCH (09:58)
[2021-03-16 10:47] LABS: ERYTHROCYTE SEDIMENTATION RATE 77 MM/HR (0-15)
--- NOTE | 2021-03-16 12:00 | NUR ---
Family Sister Libertad Parker called for update on pt. Update, given, all questions answered. Pt spoke with sister as well. Visitor policy explained. Pt requesting sister be listed as his emergency contact and next of kin.
--- NOTE | 2021-03-16 12:21 | NUR ---
Dietitian Recommendations *Recommend: continue regular diet, add Glucerna TID. ONS will provide additional 660 kcal, 30gm protein daily. *Encourage PO intake. Please see Nutritional Assessment for details. ESPERANZA, RD
[2021-03-16] MEDS: DEXAMETHASONE SOD PHOSPHATE 10 MG/ML VIAL IVP SCH (14:47)
[2021-03-16] MEDS: CEFTRIAXONE SOD 1 GM/ D5W 50 ML IV SCH ×2 (14:47)
[2021-03-16] MEDS ORDERED: TOCILIZUMAB 162 MG/0.9 ML SYRINGE SUBCUT ONE (15:00)
--- NOTE | 2021-03-16 19:13 | NUR ---
PAGED FOR ORDERS DIALED: [phone] SPOKE: SABINO
--- NOTE | 2021-03-16 19:19 | NUR ---
Closing Note: SBAR report given to night nurse, all cares endorsed. pt laying prone in bed with eyes closed on high flow O2. Bed in low, locked position.
--- NOTE | 2021-03-16 20:00 | NUR ---
AWAKE, ALERT. ON O2 HIGH FLOW AT 40L/MIN + 1OO% NRBM. POX 91-97%. ABLE TO PRONE HIMSELF WHILE LYING DOWN. PT POSITIVE FOR COVID 19, DROPLET PRECAUTIONS IN EFFECT. PRAYED WITH PASTOR PIERSON THROUGH THE INTERCOM. TRANSFERRED TO [facility] VIA BED WITH ALL BELONGINGS BECAUSE [facility] IS A NEGATIVE PRESSURE ROOM.
--- NOTE | 2021-03-16 22:00 | NUR ---
ANXIOUS, RESTLESS. STATED "I'M HAVING A PANIC ATTACK. I DO NOT WANT TO ALONE". REASSURED. ENCOURAGED TO VERBALIZE FEELINGS. INSTRUCTED TO TAKE IT EASY, HIS NUMBERS ARE GETTING BETTER. FELT BETTER.
[2021-03-16] MEDS: DEXMEDETOMIDINE HCL 200 MCG in NS 48 ML IV PRN (23:44)
[2021-03-17] VITALS (24 sets, daily range): BP systolic 106–144
--- NOTE | 2021-03-17 | NUR ---
DOZES ON AND OFF. DESATURATES AT TIMES.
[2021-03-17] MEDS: ALBUTEROL MDI INHALATION 8 GM INH INH SCH ×7 (00:06→23:28)
--- NOTE | 2021-03-17 02:00 | NUR ---
1 MODERATE FORMED SOFT BROWN STOOL DEFECATED. CLEANED. DEANA-CARE RENDERED.
--- NOTE | 2021-03-17 03:45 | NUR ---
ANXIOUS. PRECEDEX INCREASED TO 0.5 MCG/KG/HR.
--- NOTE | 2021-03-17 05:00 | NUR ---
AWAKE. USED INCENTIVE SPIROMETER.
[2021-03-17] MEDS: DEXMEDETOMIDINE HCL 200 MCG in NS 48 ML IV PRN ×2 (05:40→14:34)
[2021-03-17] MEDS: NORMAL SALINE 5 ML DISP.SYRIN IVF SCH ×3 (05:43→22:00)
--- NOTE | 2021-03-17 06:00 | NUR ---
SLEPT INTERMITTENTLY. DESATURATES AT TIMES. UO GOOD. REMAINS IN GUARDED CONDITION.
[2021-03-17 06:26] LABS: BASOPHILS % (AUTO) 0.1 % (0.0-2.0); HEMOGLOBIN 15.2 g/dL (14.0-18.0); LYMPHOCYTES # (AUTO) 0.3 K/uL (1.0-5.5); LYMPHOCYTES % (AUTO) 1.7 % (20.5-51.5); MEAN CORPUSCULAR HEMOGLOBIN 32 pg (27-31); MEAN CORPUSCULAR HGB CONC 34 % (32-36); MEAN CORPUSCULAR VOLUME 95 fL (79.0-98.0); MONOCYTES # (AUTO) 0.6 K/uL (0.0-1.0); MONOCYTES % (AUTO) 2.7 % (1.7-9.3); NEUTROPHILS # (AUTO) 19.9 K/uL (1.8-7.7); NEUTROPHILS % (AUTO) 95.5 % (40.0-70.0); PLATELET COUNT (AUTO) 217 K/uL (130-430); RED BLOOD CELL COUNT(AUTO) 4.74 MIL/uL (4.2-6.2); RED CELL DISTRIBUTION WIDTH 13.5 % (9.0-15.0); WHITE BLOOD COUNT (AUTO) 20.8 K/uL (4.8-10.8)
[2021-03-17 06:32] LABS: CALCIUM 8.7 mg/dL (8.4-11.0); CREATININE 0.79 mg/dL (0.55-1.30)
--- NOTE | 2021-03-17 07:15 | NUR ---
Received report from warehouse worker 2nd shift RN. Pt resting in bed watching tv. No immediate signs of distress. Bed locked in lowest position. Safety checks completed.
--- NOTE | 2021-03-17 07:45 | NUR ---
MD Nataly baca, updated on pt status, no new orders received.
[2021-03-17] MEDS: ENOXAPARIN SODIUM 40 MG/0.4 ML SYRINGE SUBCUT SCH (08:10)
[2021-03-17] MEDS: COLCHICINE 0.6 MG TABLET PO SCH ×2 (08:10→21:00)
[2021-03-17 08:38] LABS: ERYTHROCYTE SEDIMENTATION RATE 70 MM/HR (0-15)
[2021-03-17 08:58] LABS: C-REACTIVE PROTEIN QUANT 12.4 mg/dL (0-0.5)
[2021-03-17] MEDS: FLUCONAZOLE 200 mg/ NS 100 ML IV SCH (09:21)
--- NOTE | 2021-03-17 10:50 | NUR ---
Proning Pt placed in prone position.
[2021-03-17] MEDS: DEXAMETHASONE SOD PHOSPHATE 10 MG/ML VIAL IVP SCH (13:33)
[2021-03-17] MEDS: PIPERACILLIN/TAZO 4.5GM/DEX-IS 100 ML IV SCH ×2 (13:34→22:25)
--- NOTE | 2021-03-17 15:00 | NUR ---
IV Drip Change Increased the Precedex to 1mcg/kg/hr due to pt growing increasingly more anxious and restless.
[2021-03-17] MEDS ORDERED: DEXMEDETOMIDINE HCL 400 MCG in NS 96 ML IV PRN (15:30)
--- NOTE | 2021-03-17 18:10 | NUR ---
IV Drip Change decrease the Precedex to 0.5mcg/kg/hr pt less restless or agitation.
--- NOTE | 2021-03-17 19:25 | NUR ---
PM SHIFT ASSESSMENT Patient is awake and alert. Patient is currently in prone position. SR on monitor. Skin warm and dry. IVF infusing to RICHARD PICCLINE. Hernandez catheter in place and draining to gravity. Safety precautions in place, call light within reach. Will continue to monitor.
--- NOTE | 2021-03-17 22:15 | NUR ---
CELL PHONE PATIENTS FAMILY MEMBER DROPPED OFF PATIENTS BLACK CELL PHONE AND GET WELL CARD. BELONGINGS BROUGHT TO PATIENT.
[2021-03-17] MEDS: MORPHINE 4 MG INJ. 4 MG/ML VIAL IVP PRN (22:26)
[2021-03-18] VITALS (24 sets, daily range): BP systolic 85–158
[2021-03-18] MEDS: DEXMEDETOMIDINE HCL 400 MCG in NS 96 ML IV PRN ×2 (02:41→16:25)
[2021-03-18] MEDS: ALBUTEROL MDI INHALATION 8 GM INH INH SCH ×6 (03:42→23:06)
[2021-03-18] MEDS: NORMAL SALINE 5 ML DISP.SYRIN IVF SCH ×3 (05:15→22:00)
[2021-03-18] MEDS: PIPERACILLIN/TAZO 4.5GM/DEX-IS 100 ML IV SCH ×3 (05:15→22:58)
[2021-03-18 05:55] LABS: BASOPHILS % (AUTO) 0.1 % (0.0-2.0); HEMATOCRIT 43.2 % (36-54); HEMOGLOBIN 14.7 g/dL (14.0-18.0); LYMPHOCYTES # (AUTO) 0.3 K/uL (1.0-5.5); LYMPHOCYTES % (AUTO) 1.2 % (20.5-51.5); MEAN CORPUSCULAR HEMOGLOBIN 32 pg (27-31); MEAN CORPUSCULAR HGB CONC 34 % (32-36); MEAN CORPUSCULAR VOLUME 94 fL (79.0-98.0); MONOCYTES # (AUTO) 0.4 K/uL (0.0-1.0); MONOCYTES % (AUTO) 1.8 % (1.7-9.3); NEUTROPHILS # (AUTO) 22.1 K/uL (1.8-7.7); PLATELET COUNT (AUTO) 151 K/uL (130-430); RED CELL DISTRIBUTION WIDTH 13.3 % (9.0-15.0); WHITE BLOOD COUNT (AUTO) 22.8 K/uL (4.8-10.8)
[2021-03-18 06:51] LABS: CALCIUM 8.4 mg/dL (8.4-11.0); CREATININE 0.79 mg/dL (0.55-1.30); POTASSIUM 4.8 mmol/L (3.5-5.1)
--- NOTE | 2021-03-18 07:30 | NUR ---
ENDORSEMENT Patient care endorsed to charles REYNA.
--- NOTE | 2021-03-18 07:30 | NUR ---
Recv report fr Marcelina mauro, patient is in bed currently on Hi flow 40L @ 100%, patient is aao x 4, follows all commands, but o2 sat is between 79% to 89% , patient is compliant with proning , telmetry shows sr, patient able to move around the bed, i will continue nursing care and interventions.
[2021-03-18 07:53] LABS: C-REACTIVE PROTEIN QUANT 7.6 mg/dL (0-0.5)
--- NOTE | 2021-03-18 08:00 | NUR ---
Encouraged patient to use incentive spirometry , patient is able to do between 500 to 1000 L, patient with occasionl dry cough, o2 sat still not within normal, will continue to monitor vitals sign and breathing.
[2021-03-18 08:36] LABS: NEUTROPHILS % (AUTO) 96.9 % (40.0-70.0)
[2021-03-18] MEDS: COLCHICINE 0.6 MG TABLET PO SCH ×2 (08:54→20:52)
[2021-03-18] MEDS: ENOXAPARIN SODIUM 40 MG/0.4 ML SYRINGE SUBCUT SCH (08:55)
[2021-03-18] MEDS: FLUCONAZOLE 200 mg/ NS 100 ML IV SCH (08:56)
[2021-03-18 09:16] LABS: ERYTHROCYTE SEDIMENTATION RATE 48 MM/HR (0-15)
--- NOTE | 2021-03-18 10:00 | NUR ---
Instructed patient to go to a prone position, patient is able to do it with minimum assistance, i will closely monitor patient o2 sat and breathing , blood pressures stable, telemetry shows sr, i will cotninue to monitor the patient.
--- NOTE | 2021-03-18 12:00 | NUR ---
Patient with increasing restlessness and agitation, frequently calls for no reasong, increased patinets precedex to 1 mcg/kg/hr, to keep patient calm to help promote better breathing.
--- NOTE | 2021-03-18 14:00 | NUR ---
Patient continues to saturate in the 80% and above, but patient does not present any breathing discomfort. no further orders from the doctors, i will continue to monitor the patient.
--- NOTE | 2021-03-18 16:00 | NUR ---
Patient is in bed no changes, still low o2 saturation , but does not show short of breath. precedex at 1 mcg/kg/hr.
[2021-03-18] MEDS: DEXAMETHASONE SOD PHOSPHATE 10 MG/ML VIAL IVP SCH (16:16)
--- NOTE | 2021-03-18 17:00 | NUR ---
Dr. Morales made rounds in the unit, notified him about patient o2 sat in the 80's , he said patient is ok, just monitor.
--- NOTE | 2021-03-18 19:30 | NUR ---
PM SHIFT ASSESSMENT Patient is awake and alert. SR on monitor. Skin warm and dry. IVF infusing to RICHARD PICCLINE. Hernandez catheter in place and draining to gravity. Safety precautions in place, call light within reach. Will continue to monitor.
[2021-03-18] MEDS: MORPHINE 4 MG INJ. 4 MG/ML VIAL IVP PRN (23:00)
[2021-03-19] VITALS (25 sets, daily range): BP systolic 76–188
[2021-03-19] MEDS: DEXMEDETOMIDINE HCL 400 MCG in NS 96 ML IV PRN ×4 (02:54→16:09)
[2021-03-19] MEDS: ALBUTEROL MDI INHALATION 8 GM INH INH SCH ×6 (03:35→23:00)
[2021-03-19] MEDS: PIPERACILLIN/TAZO 4.5GM/DEX-IS 100 ML IV SCH ×3 (05:22→22:00)
[2021-03-19] MEDS: NORMAL SALINE 5 ML DISP.SYRIN IVF SCH ×3 (05:23→22:00)
[2021-03-19 06:43] LABS: CALCIUM 7.9 mg/dL (8.4-11.0); CREATININE 0.79 mg/dL (0.55-1.30); TOTAL BILIRUBIN 0.5 mg/dL (0.0-1.0)
--- NOTE | 2021-03-19 07:30 | NUR ---
ENDORSEMENT Patient care endorsed to charles REYNA.
--- NOTE | 2021-03-19 07:50 | NUR ---
AM ASSESSMENT. PT AGITATED, TRIES TO TAKE HIS O2 NON REBREATHER MASK, SATURATION 77%, R.T CAME IN AND HELPED PT REATTACHED TO NR MASK. HIGH FLOW O2 IN USE. OFFERED PT SOMETHING TO DRINK, WHEN HE BECAME LESS AGITATED. LIPS DRY AND PT WAS WILLING TO DRINK SOME ORANGE JUICE.
[2021-03-19 08:09] LABS: BASOPHILS # (AUTO) 0.1 K/uL (0.0-0.2); BASOPHILS % (AUTO) 0.4 % (0.0-2.0); EOSINOPHILS % (AUTO) 0.1 % (0.0-4.0); HEMATOCRIT 45.5 % (36-54); HEMOGLOBIN 15.5 g/dL (14.0-18.0); LYMPHOCYTES # (AUTO) 0.3 K/uL (1.0-5.5); LYMPHOCYTES % (AUTO) 1.4 % (20.5-51.5); MEAN CORPUSCULAR HEMOGLOBIN 32 pg (27-31); MEAN CORPUSCULAR HGB CONC 34 % (32-36); MEAN CORPUSCULAR VOLUME 94 fL (79.0-98.0); MONOCYTES # (AUTO) 0.4 K/uL (0.0-1.0); MONOCYTES % (AUTO) 1.7 % (1.7-9.3); NEUTROPHILS # (AUTO) 22.9 K/uL (1.8-7.7); NEUTROPHILS % (AUTO) 96.4 % (40.0-70.0); PLATELET COUNT (AUTO) 87 K/uL (130-430); RED BLOOD CELL COUNT(AUTO) 4.86 MIL/uL (4.2-6.2); RED CELL DISTRIBUTION WIDTH 13.3 % (9.0-15.0); WHITE BLOOD COUNT (AUTO) 23.7 K/uL (4.8-10.8)
[2021-03-19] MEDS: COLCHICINE 0.6 MG TABLET PO SCH ×2 (08:53→21:00)
[2021-03-19] MEDS: ENOXAPARIN SODIUM 40 MG/0.4 ML SYRINGE SUBCUT SCH (08:53)
[2021-03-19 09:11] LABS: C-REACTIVE PROTEIN QUANT 16.2 mg/dL (0-0.5)
[2021-03-19] MEDS: MORPHINE 4 MG INJ. 4 MG/ML VIAL IVP PRN (09:11)
--- NOTE | 2021-03-19 09:11 | NUR ---
PAIN. PT LYING SIDEWAYS, YELLING AND SCREAMING, O2 SATURATION 80% WHILE HE PULLED OUT HIS MASK OFF AND SCREAMED, "BACK HURTS", OFFERED HIM PAIN MEDS, "NO, THAT WILL COMPLETELY KNOCK ME OUT", EXPLAINED THE EFFECT OF SMALL AMOUNT OF DRUG, PT THEN AGREED, MORPHINE 4 MG IVP GIVEN. ASKED PT IF HE WANTS TO LIE ON HIS STOMACH, PT REFUSED.
--- NOTE | 2021-03-19 10:00 | NUR ---
ACTIVITY PATIENT REMAINS LYING ON HIS SIDE, COMFORTABLE THOUGH TACHYPNEIC, EYES CLOSED, SATURATION 69% TO 77%.
[2021-03-19 11:48] LABS: ERYTHROCYTE SEDIMENTATION RATE 25 MM/HR (0-15)
[2021-03-19] MEDS ORDERED: ETOMIDATE 20 MG/ 10 ML VIAL (AMIDATE) IVP ONE ×2 (12:58→21:15)
[2021-03-19] MEDS ORDERED: SUCCINYLCHOLINE CHLORIDE 20 MG/ML(QUELICIN) IVP ONE ×2 (12:58→21:15)
--- NOTE | 2021-03-19 13:58 | NUR ---
ANXIETY PT YELLING, "I CAN'T BREATHE, I'M SCARED TO , I'M NOT READY TO " APPROACHED AND STAYED WITH PATIENT, SPOKE IN A CALM VOICE, O2 SAT READING 68% TO 77%. PATIENT ASKED TO DRINK, AND HE DRANK AN APPLE JUICE. PATIENT ASKED NURSE TO MASSAGE HIS SHOULDER, GENTLY RUBBED UPPER BACK. ASKED IF PT WOULD LIKE TO TRY LYING ON THE STOMACH, PATIENT TURNED HIS BODY, PILLOW PLACED UNDER HIS CHEST FOR SUPPORT, O2 SATURATION CHANGED INTO 80% TO 83%.
[2021-03-19] MEDS: DEXAMETHASONE SOD PHOSPHATE 10 MG/ML VIAL IVP SCH (14:16)
--- NOTE | 2021-03-19 14:57 | NUR ---
BELONGINGS WENT TO SEE SOMETHING THAT FAMILY OR FRIEND DROPPED OFF AT THE LOBBY, PICKED UP A A CELL PHONE WITH AN ENVELOPE WITH PT'S NAME , THEN LEFT IN THE PT'S ROOM 7, PT AWARE.
--- NOTE | 2021-03-19 16:09 | NUR ---
CELLOPHANE TESTER DR GRANADO MAKING HIS ROUNDS, HE WENT TO SPEAK TO THE PATIENT. PT TACHYPNEIC, SPEAKING CLEARLY, FACE TURNED TO ONE SIDE, "I DON'T WANT TO HAVE A TUBE IN MY THROAT TO BREATHE".
--- NOTE | 2021-03-19 16:19 | NUR ---
A CALL RECEIVED FROM PASTOR PIERSON, HE STATED THAT HE CAN'T COME IN TODAY TO SEE THE PATIENT BUT WILL CALL AGAIN TOMORROW. MESSAGE GIVEN TO PATIENT.
--- NOTE | 2021-03-19 16:49 | NUR ---
Nutrition F/U RD reviewed pt's current EMR record including diet Hx, physician notes, nursing notes, pertinent labs/meds/procedures, care trends, and care activity. Admission Dx: Sepsis, Pneumonia Pt w/: Sepsis, Acute respiratory failure, COVID-19 Pneumonia, Elevated fibrinogen, elevated D-dimer, Hyponatremia, Hyperglycemia per MD notes. PMH: Hx of Drug use/methamphetamine per MD notes. SARS-CoV-2 Ag (Rapid) Positive 03/05 Current Diet Order/Nutrition Support: Regular, mechanical soft diet w/ Glucerna TID Subjective Info: RD rounded to ICU and spoke w/ pt's primary RN outside of pt's room. RN reported that pt seems to only want to drink liquids, including ONS Glucerna. She asked if we could send double ONS per meal tray for now as pt does not seem to want to eat solid foods. Additional ONS is warranted at this time d/t poor PO intakes per RN report and meal records per EMR review. RN stated that pt is refusing intubation, but may require it soon d/t current condition. Per EMR review, pt is on a combination of HFNC and NRBM; PO intake average of 25% x2 meals; abd is soft and non-distended w/ active bowel sounds; last BM x1 03/17; Cristhian scale: 17, no skin issues noted. Pt is not meeting nutritional needs at this time. Pertinent Medications: decadron, lovenox, morphine, piperacillin/tazobactam IV Pertinent Labs: Na 134 L, BG 153 H, BUN 25 H, WBC 23.7 H Ht: 5'11" Wt: 190#/86 kg (03/16) -- stable BMI: 26.50 kg/m2 (overwt) %IBW: 110 [place]/Adjusted Body Weight: 172#/ 78 kg Usual Diet At Home: Regular diet per EMR Estimated Energy Expenditure (kcals/day) 6233-5827 Kcal/day (30-35 kcal/kg CBW for sepsis/acute state) Estimated Protein Required (g/day) 129-172gm/day (1.5-2 gm/kg CBW for sepsis/acute state) Estimated Fluid Required (l/day) 2.5-3L/day (1ml/calorie for maintenance) Problem/Etiology/Signs/Symptoms Increased protein-calorie needs r/t acute state and metabolic demands AEB estimated calorie and protein needs for sepsis/acute illness. *ongoing Altered nutrition related labs r/t medication interaction AEB elevated BG, steroid therapy. *ongoing Expected Outcomes/Goals Monitor appetite and PO intake w/ goal of pt meeting more than 75% of estimated nutritional needs, labs trending WNL, normal GI function, skin integrity/wt maintenance. Dietitian Recommendations * Recommend regular, mechanical soft diet w/ Glucerna 6x/day (2 ONS per meal TID) (ONS will provide an additional 1320 kcal/day and 60 gm protein/day) * Encourage increase PO intakes Follow Up High Risk: F/U in 2-3 days
--- NOTE | 2021-03-19 16:51 | NUR ---
Dietitian Recommendations * Recommend regular, mechanical soft diet w/ Glucerna 6x/day (2 ONS per meal TID) (ONS will provide an additional 1320 kcal/day and 60 gm protein/day) * Encourage increase PO intakes LP, RD Please refer to Nutrition F/U for details.
--- NOTE | 2021-03-19 17:12 | NUR ---
FAMILY PT'S SISTER ALAINA SO CALLED UP, UPDATE ON PT'S STATUS GIVEN. PT HAD ASKED TO LEAVE HIS [employer] CAR KEYS TO HER, KEYS IN THE STATION AND FAMILY CAN PICK IT UP WHEN THEY ARE READY.
--- NOTE | 2021-03-19 19:10 | NUR ---
BELONGINGS PT'S SISTER ALAINA CAME IN TO SUPERVISORY TRAINING SPECIALIST PT'S CAR KEYS, THEY WERE WAITING IN THE HOSPITAL LOBBY.
--- NOTE | 2021-03-19 19:30 | NUR ---
Opening note Received report and assumed care. Patient agitated and struggling to breathe, stating "I can't bread". Patient has reported not being ready to be intubated; upon discussion patient agreed to intubation. Dr Centeno will be contacted for orders. Patient's O2 saturations 69-73%. Will continue to monitor.
--- NOTE | 2021-03-19 19:45 | NUR ---
MD CARMELITA CHU [phone] SPOKE WITH WILIAM
--- NOTE | 2021-03-19 19:55 | NUR ---
Orders received from Dr Centeno to intubate patient. Other orders also received. RT being informed of orders. will continue to monitor.
[2021-03-19] MEDS ORDERED: NOREPINEPHRINE BITARTRATE 4 MG in NS 246 ML IV PRN (20:15)
--- NOTE | 2021-03-19 20:45 | NUR ---
Dr Muniz ER at bedside, RT at bedside. Patient intubated at this time with ETT 7.5, 26 cm lip line. Patient continues to be agitated; sedation started, restraints in place. will continue to monitor.
--- NOTE | 2021-03-19 22:18 | NUR ---
MD CARMELITA CHU [phone] SPOKE WITH KRYSTLE
--- NOTE | 2021-03-19 22:25 | NUR ---
Dr Centeno contacted to add another sedation. Patient using accessory muscles with saturation 70% and RR 33. Order for Versed drip obtained. will continue to monitor.
[2021-03-19] MEDS ORDERED: MIDAZOLAM IN NACL,ISO-OSMOT/PF 100 ML IV ONE (22:30)
[2021-03-19] MEDS ORDERED: NOREPINEPHRINE 4 MG/4 ML VIAL IV ONE (23:06)
--- NOTE | 2021-03-19 23:30 | NUR ---
Levophed was started due to drop in BP. will continue to monitor.
[2021-03-19] MEDS: MORPHINE SULFATE IN 0.9 % NACL 100 ML IV PRN (23:46)
[2021-03-19] MEDS: PROPOFOL DRIP 100 ML IV PRN (23:50)
[2021-03-20] VITALS (26 sets, daily range): BP systolic 95–125
--- NOTE | 2021-03-20 00:52 | NUR ---
Sedation has been effective. HR 98, O2 sat 87%, RR 18. BP 115/56. will continue to monitor
[2021-03-20] MEDS: ALBUTEROL MDI INHALATION 8 GM INH INH SCH ×6 (04:29→23:41)
[2021-03-20] MEDS ORDERED: NOREPINEPHRINE 4 MG/4 ML VIAL IV ONE ×2 (04:45→10:23)
[2021-03-20] MEDS: NORMAL SALINE 5 ML DISP.SYRIN IVF SCH ×3 (06:48→21:41)
[2021-03-20] MEDS: PIPERACILLIN/TAZO 4.5GM/DEX-IS 100 ML IV SCH (06:50)
[2021-03-20 07:14] LABS: CALCIUM 7.7 mg/dL (8.4-11.0); CREATININE 1.46 mg/dL (0.55-1.30); POTASSIUM 5.7 mmol/L (3.5-5.1)
--- NOTE | 2021-03-20 07:15 | NUR ---
OPENING NOTE: REPORT RC'VD FROM OUTGOING NOC RN, ALL CARES ASSUMED.
--- NOTE | 2021-03-20 07:30 | NUR ---
ABG'S DRAWN BY RT, PENDING RESULTS AT THIS TIME.
[2021-03-20 07:49] LABS: HEMATOCRIT 46.5 % (36-54); HEMOGLOBIN 15.3 g/dL (14.0-18.0); MEAN CORPUSCULAR HEMOGLOBIN 32 pg (27-31); MEAN CORPUSCULAR HGB CONC 33 % (32-36); MEAN CORPUSCULAR VOLUME 96 fL (79.0-98.0); PLATELET COUNT (AUTO) 69 K/uL (130-430); RED BLOOD CELL COUNT(AUTO) 4.84 MIL/uL (4.2-6.2); RED CELL DISTRIBUTION WIDTH 13.4 % (9.0-15.0)
[2021-03-20] MEDS: ENOXAPARIN SODIUM 40 MG/0.4 ML SYRINGE SUBCUT SCH (08:14)
[2021-03-20 08:22] LABS: WHITE BLOOD COUNT (AUTO) 32.3 K/uL (4.8-10.8)
--- NOTE | 2021-03-20 08:35 | NUR ---
DIETARY CONSULT PLACED, CALLED DIETARY OFFICE AND LEFT MESSAGE.
[2021-03-20 08:44] LABS: C-REACTIVE PROTEIN QUANT 17.5 mg/dL (0-0.5)
[2021-03-20] MEDS ORDERED: PANTOPRAZOLE SODIUM 40 MG/VIAL (PROTONIX) IVP ONE (09:00)
[2021-03-20] MEDS: COLCHICINE 0.6 MG TABLET PO SCH ×2 (09:39→21:41)
--- NOTE | 2021-03-20 09:40 | NUR ---
Called Dr. Freedman with a consult,spoke with Carlee from the exchange
[2021-03-20] MEDS: PROPOFOL DRIP 100 ML IV PRN ×3 (09:41→17:55)
[2021-03-20] MEDS: MIDAZOLAM IN NACL,ISO-OSMOT/PF 100 ML IV PRN (09:42)
--- NOTE | 2021-03-20 09:45 | NUR ---
GI CONSULT CALLED, PENDING RETURN CALL.
[2021-03-20 10:13] LABS: ERYTHROCYTE SEDIMENTATION RATE 8 MM/HR (0-15)
--- NOTE | 2021-03-20 10:35 | NUR ---
Chest Tube Placement Right sided chest tube size 28F placed at bedside by ER DR Garcia.
--- NOTE | 2021-03-20 11:08 | NUR ---
Nutrition F/U RD reviewed pt's current EMR record including diet Hx, physician notes, nursing notes, pertinent labs/meds/procedures, care trends, and care activity. Admission Dx: Sepsis, Pneumonia Pt w/: Sepsis, Acute respiratory failure, COVID-19 Pneumonia, Elevated fibrinogen, elevated D-dimer, Hyponatremia, Hyperglycemia per MD notes. PMH: Hx of Drug use/methamphetamine per MD notes. SARS-CoV-2 Ag (Rapid) Positive 03/05 Current Diet Order/Nutrition Support: NPO x0 days Subjective Info: RD received Nutrition Consult 03/20/21 0835 d/t pt's recent intubation. RD reviewed pt's current EMR and called ICU and spoke w/ insulation cupola charger to retrieve most current Ve (12.1) as RT assessment was not populating properly on RD's view of EMR. Per EMR review, pt has a clamped OGT now. Pt would benefit from initiating EN support. Pertinent Medications: decadron, lovenox, morphine, protonix, propofol at 20.684 ml/hr (546 kcal/day) Pertinent Labs: Na 134 L, BG 179 H, BUN 45 H, WBC 32.3 H, CRE 1.46 H Ht: 5'11" Wt: 190#/86 kg (03/16) -- stable BMI: 26.50 kg/m2 (overwt) %IBW: 110 [place]/Adjusted Body Weight: 172#/ 78 kg Usual Diet At Home: Regular diet per EMR NEW Estimated Energy Expenditure (kcals/day) 1932 Kcal/day (REE using PSU d/t critical illness, recent intubation) Estimated Protein Required (g/day) 129-172gm/day (1.5-2 gm/kg CBW for sepsis/acute state) NEW Estimated Fluid Required (l/day) 1.9 L/day (1 ml/kcal/day for maintenance) Problem/Etiology/Signs/Symptoms Increased protein-calorie needs r/t acute state and metabolic demands AEB estimated calorie and protein needs for sepsis/acute illness. *ongoing Altered nutrition related labs r/t medication interaction AEB elevated BG, steroid therapy. *ongoing Inadequate nutritional intakes related to recent intubation as evidenced by NPO status and no current EN orders. *new Expected Outcomes/Goals Monitor appetite and PO intake w/ goal of pt meeting more than 75% of estimated nutritional needs, labs trending WNL, normal GI function, skin integrity/wt maintenance. Dietitian Recommendations * Recommend Vital AF 1.2 at 45 ml/hr (goal rate), Prosource BID, Free Water Flush: 150 ml Q4h via OGT Provides (w/ current propofol infusion rate): 1962 kcal/day, 111 gm protein/day, and 1776 ml free water/day Meets: 102% of estimated caloric needs and 86% of lower end of estimated protein needs Follow Up High Risk: F/U in 2-3 days Addendum: 03/20/21 at [address] CORRECTION: Subjective Info: KARINE received Nutrition Consult 03/20/21 0835 d/t pt's recent intubation. KARINE reviewed pt's current EMR and called ICU -- spoke w/ insulation cupola charger to retrieve most current Ve (12.1) as RT assessment was not populating properly on KARINE's view of EMR. Per EMR review, pt was intubated last night, 03/19, and was doing poorly w/ O2 sats in the 70s prior to intubation; pt has a clamped OGT now. Pt would benefit from initiating EN support. NEW Estimated Energy Expenditure (kcals/day) -- Ve: 12.1/Temperature: 97.9 degrees F/36.6 degrees C 1932 Kcal/day (REE using PSU d/t critical illness, recent intubation) Addendum: 03/20/21 at [address] RD called ICU and spoke w/ pt's primary RN to relay RD rec for TF -- RN acknowledged.
--- NOTE | 2021-03-20 11:15 | NUR ---
Dietitian Recommendations * Recommend Vital AF 1.2 at 45 ml/hr (goal rate), Prosource BID, Free Water Flush: 150 ml Q4h via OGT Provides (w/ current propofol infusion rate): 1962 kcal/day, 111 gm protein/day, and 1776 ml free water/day Meets: 102% of estimated caloric needs and 86% of lower end of estimated protein needs LP, RD Please refer to Nutrition F/U for details.
[2021-03-20 11:31] LABS: BAND % (MANUAL) 3 % (0-6); BASOPHILS % (MANUAL) 0 % (0-2); EOSINOPHILS % (MANUAL) 0 % (0-7); LYMPHOCYTES % (MANUAL) 1 % (20-46); MONOCYTES % (MANUAL) 1 % (0-11)
[2021-03-20] MEDS: NOREPINEPHRINE BITARTRATE 16 MG in NS 234 ML IV PRN ×3 (12:39→22:40)
[2021-03-20] MEDS: MORPHINE SULFATE IN 0.9 % NACL 100 ML IV PRN ×2 (13:56→22:35)
[2021-03-20] MEDS: DEXAMETHASONE SOD PHOSPHATE 10 MG/ML VIAL IVP SCH (13:59)
--- NOTE | 2021-03-20 14:00 | NUR ---
Dr Morales at bedside MD Morales rounded at bedside, updated on pt status.
--- NOTE | 2021-03-20 17:04 | NUR ---
DR. CHAVARRIA MAKING ROUNDS, ALL QUESTIONS ANSWERED.
--- NOTE | 2021-03-20 19:30 | NUR ---
Opening note Received report and assumed care. Isolation for Covid [address] Vent to ETT AC 22 tolerating settings. Right sided chest tube in place draining serosanguinous fluid. will continue to monitor.
[2021-03-20] MEDS: MEROPENEM 1 GM in NS 100 ML IV SCH (21:40)
[2021-03-21] VITALS (32 sets, daily range): BP systolic 79–143
--- NOTE | 2021-03-21 02:00 | NUR ---
morning care provided. linen changed; chg bath given. repositioned for comfort.
--- NOTE | 2021-03-21 03:00 | NUR ---
placed on 2 L/min nasal canula. patient tolerating well Addendum: 03/21/21 at 0651 by Steve Feng RN please disregard this note; does not apply to this patient
[2021-03-21] MEDS: ALBUTEROL MDI INHALATION 8 GM INH INH SCH ×6 (03:58→22:32)
[2021-03-21] MEDS: MORPHINE SULFATE IN 0.9 % NACL 100 ML IV PRN ×2 (06:20→15:45)
--- NOTE | 2021-03-21 06:30 | NUR ---
morning care provided. Repositioned for comfort. Left femoral central line dressing changed Addendum: 03/21/21 at 0651 by Steve Feng RN please disregard this note does not apply to this patient
[2021-03-21] MEDS: NORMAL SALINE 5 ML DISP.SYRIN IVF SCH ×3 (06:42→21:23)
[2021-03-21] MEDS: PROPOFOL DRIP 100 ML IV PRN ×2 (07:50→15:46)
[2021-03-21] MEDS: MIDAZOLAM IN NACL,ISO-OSMOT/PF 100 ML IV PRN ×2 (07:52→15:48)
--- NOTE | 2021-03-21 08:00 | NUR ---
pt on vent support, covid positive, current settings AC 22, TV 450, FIO2 100%, Peep 14, RR in 20s, suctioned pt, small amt of secretions, repositoned pt, chest tube in place, serosang. drainage noted, pt on morphine, versed, propofol, and levophed drip, will continue to monitor closely.
--- NOTE | 2021-03-21 08:00 | NUR ---
pt on vent support, covid positive, pt on Morphine, Versed, Propofol, and Levophed IV drips, pt has PICC line to left upper arm, in line suctioned pt, small amt of yellowish-white sputum, chest tube to right side in place, serosang drainage noted, jo in place, pt ST 110s-120s, will continue to monitor closely.
[2021-03-21] MEDS: MEROPENEM 1 GM in NS 100 ML IV SCH ×2 (08:45→20:09)
[2021-03-21] MEDS: PANTOPRAZOLE SODIUM 40 MG/VIAL (PROTONIX) IVP SCH (08:45)
[2021-03-21] MEDS: COLCHICINE 0.6 MG TABLET PO SCH ×2 (08:45→20:09)
[2021-03-21] MEDS: ENOXAPARIN SODIUM 40 MG/0.4 ML SYRINGE SUBCUT SCH (08:47)
[2021-03-21 08:54] LABS: BASOPHILS # (AUTO) 0.3 K/uL (0.0-0.2); HEMATOCRIT 46.2 % (36-54); LYMPHOCYTES # (AUTO) 0.2 K/uL (1.0-5.5); LYMPHOCYTES % (AUTO) 0.6 % (20.5-51.5); MEAN CORPUSCULAR HEMOGLOBIN 32 pg (27-31); MEAN CORPUSCULAR HGB CONC 33 % (32-36); MEAN CORPUSCULAR VOLUME 98 fL (79.0-98.0); MONOCYTES # (AUTO) 0.5 K/uL (0.0-1.0); MONOCYTES % (AUTO) 1.4 % (1.7-9.3); NEUTROPHILS # (AUTO) 33.3 K/uL (1.8-7.7); PLATELET COUNT (AUTO) 62 K/uL (130-430); RED BLOOD CELL COUNT(AUTO) 4.71 MIL/uL (4.2-6.2); RED CELL DISTRIBUTION WIDTH 13.5 % (9.0-15.0)
--- NOTE | 2021-03-21 09:00 | NUR ---
DR. FORD ROUNDED ON PATIENT, TO PLACE NEW ORDERS.
[2021-03-21 09:25] LABS: CREATININE 3.46 mg/dL (0.55-1.30); PHOSPHORUS 10.6 mg/dL (2.7-4.5)
[2021-03-21 10:06] LABS: INR 1.1 (0.80-1.20); PROTHROMBIN TIME 11.8 SECS (9.5-12.5)
[2021-03-21] MEDS: NOREPINEPHRINE BITARTRATE 16 MG in NS 234 ML IV PRN ×5 (10:12→21:26)
[2021-03-21 10:24] LABS: WHITE BLOOD COUNT (AUTO) 34.3 K/uL (4.8-10.8)
[2021-03-21 10:37] LABS: POTASSIUM 7.2 mmol/L (3.5-5.1)
--- NOTE | 2021-03-21 10:41 | NUR ---
,ANGELINA AWARE OF k+ RESULT AND WBC ELEVATION, NEW ORDERS RCVD TO INCLUDE NEPHRO CONSULT.
[2021-03-21] MEDS ORDERED: SODIUM POLYSTYRENE SULFONATE 15 GM/60 ML UDBTL PO ONE (10:45)
--- NOTE | 2021-03-21 10:53 | NUR ---
SPOKE TO DR. BUCHANAN IN PERSON, AWARE OF NEW ORDER FOR CONSULT.
--- NOTE | 2021-03-21 11:11 | NUR ---
PAGED DR. GRANADO R/T BLOOD PRESSURE, PENDING RETURN CALL.
[2021-03-21] MEDS: VASOPRESSIN 40 UNITS in NS 38 ML IV PRN ×2 (11:33→16:32)
[2021-03-21 11:34] LABS: C-REACTIVE PROTEIN QUANT 16.3 mg/dL (0-0.5)
[2021-03-21 12:04] LABS: ERYTHROCYTE SEDIMENTATION RATE 4 MM/HR (0-15)
--- NOTE | 2021-03-21 12:11 | NUR ---
RT NOTES 1211 ABG done, per abg results Dr Morales ordered set rate increased to 28, saturation at 95%. AXEL Jacques made aware. will continue to monitor pt. Addendum: 03/21/21 at 1720 by Dalia Felix RT Per Dr. Morales, also if PIP high switch pt to PC mode. (target VT 450). will pass report to RT NOC shift.
--- NOTE | 2021-03-21 12:25 | NUR ---
DR. GRANADO SPOKE WITH FAMILY OVER PHONE, ALL QUESTIONS ANSWERED.
[2021-03-21] MEDS ORDERED: DEXTROSE 50% JECT 50 ML DISP.SYRIN IVP ONE ×2 (12:45→22:15)
[2021-03-21] MEDS ORDERED: INSULIN REGULAR, HUMAN 100 UNITS/ML, 10 ML VIAL IVP ONE ×2 (12:45→22:15)
[2021-03-21] MEDS ORDERED: CALCIUM GLUCONATE 1 GM in NS 100 ML IV ONE (13:00)
[2021-03-21] MEDS ORDERED: CALCIUM GLUCONATE 1 GM/10 ML VIAL ONE (13:17)
[2021-03-21] MEDS: DEXAMETHASONE SOD PHOSPHATE 10 MG/ML VIAL IVP SCH (13:31)
[2021-03-21] MEDS: ACETAMINOPHEN 325 MG TABLET PO PRN ×2 (16:32→22:35)
[2021-03-21] MEDS ORDERED: VASOPRESSIN 20 UNITS/ML VIAL IV ONE (16:36)
--- NOTE | 2021-03-21 17:00 | NUR ---
pt's temp 100.8, cooling measures performed, Dr. Morales notified for HR sustaining in 130s, no new orders given, attempted to speak to pt's friend Libertad to tell her pt's current condition but she did not answer, will call again in 1 hour.
--- NOTE | 2021-03-21 17:51 | NUR ---
pt's friend Libertad called back and stated she would like for pt to be full DNR, Juana Daniel spoke with Libertad as well and confirmed she wants pt to be full DNR, bed bath performed, no BM noted, will continue to monitor.
--- NOTE | 2021-03-21 19:10 | NUR ---
RECD REPORT, ASSESSED PT,SEDATED INTUBATED AND VENTILATED,ST-136 THEN VTACH ON TELE METRY BP 98/78 MAX DOSE LEVO GTT AND VASO GTT, TEMP-102.9 ROOM WAS AT 80 DEGREE TEMP. SEDATION PROP AT 20 MCG, MORPHINE AT 11 MG AND VERSED AT 9 MG. SEDATION DECREASE RATE, PATIENT RASS-5 BP VERY LOW AND NON RECORDABLE IN BETWEEN. SEE V/S FLOWSHAEET. HR 281 VTACH ON TELE SUSTAINING. 2100 NEOSYNEPHRINE STARTED AT 1MCG/KG/MIN. TEMP-101.4 TYLENOL GIVEN VIA NGT.
--- NOTE | 2021-03-21 19:25 | NUR ---
report endorsed to AXEL Velázquez.
[2021-03-21] MEDS: PHENYLEPHRINE HCL 100 MG in NS 240 ML IV PRN (21:24)
--- NOTE | 2021-03-21 21:47 | NUR ---
PAGED FOR ORDERS DIALED: [phone] SPOKE TO: SHARON
--- NOTE | 2021-03-21 22:00 | NUR ---
CARMELIAT CHU CALLED BACK MADE HIM AWARE CURRENT RYTHMN CHANGED AND PATIENTS VERY POOR HEMODINAMIC CONDITION ORDERED D50 1 AMP AND REG INSULIN 10 UNITS IVP TO BRING DOWN K-7.2 KAYEXALATE DIDNT WORK TILL NOW. AWARE OF CODE STATUS UNABLE TO CARDIOVERT .
--- NOTE | 2021-03-21 22:20 | NUR ---
CONVERTED TO SR W/ PEAK T WAVE HR-68 BP 97/56
[2021-03-22] VITALS (25 sets, daily range): BP systolic 87–129
[2021-03-22] MEDS: NOREPINEPHRINE BITARTRATE 16 MG in NS 234 ML IV PRN ×3 (01:54→17:54)
[2021-03-22] MEDS: PROPOFOL DRIP 100 ML IV PRN (02:18)
[2021-03-22] MEDS ORDERED: NOREPINEPHRINE 4 MG/4 ML VIAL IV ONE (02:23)
[2021-03-22] MEDS: ALBUTEROL MDI INHALATION 8 GM INH INH SCH ×3 (02:40→11:54)
[2021-03-22] MEDS: MORPHINE SULFATE IN 0.9 % NACL 100 ML IV PRN (05:26)
[2021-03-22] MEDS: NORMAL SALINE 5 ML DISP.SYRIN IVF SCH ×2 (05:35→14:38)
[2021-03-22 07:06] LABS: BASOPHILS # (AUTO) 0.2 K/uL (0.0-0.2); BASOPHILS % (AUTO) 0.6 % (0.0-2.0); HEMATOCRIT 41.5 % (36-54); HEMOGLOBIN 13.2 g/dL (14.0-18.0); LYMPHOCYTES # (AUTO) 0.4 K/uL (1.0-5.5); LYMPHOCYTES % (AUTO) 1.2 % (20.5-51.5); MEAN CORPUSCULAR HEMOGLOBIN 31 pg (27-31); MEAN CORPUSCULAR HGB CONC 32 % (32-36); MEAN CORPUSCULAR VOLUME 98 fL (79.0-98.0); MONOCYTES # (AUTO) 0.4 K/uL (0.0-1.0); MONOCYTES % (AUTO) 1.1 % (1.7-9.3); NEUTROPHILS # (AUTO) 30.7 K/uL (1.8-7.7); PLATELET COUNT (AUTO) 69 K/uL (130-430); RED BLOOD CELL COUNT(AUTO) 4.22 MIL/uL (4.2-6.2); RED CELL DISTRIBUTION WIDTH 13.6 % (9.0-15.0)
[2021-03-22 07:16] LABS: ALBUMIN 1.9 g/dL (3.4-4.8); PHOSPHORUS 10.6 mg/dL (2.7-4.5); TOTAL BILIRUBIN 0.3 mg/dL (0.0-1.0)
--- NOTE | 2021-03-22 07:31 | NUR ---
ON DUTY RECEIVED PT ON VENT: [id number]. SEDATED WITH PROPOFOL 15MCG/MIN/KG, MORPHINE 5MG/HR, VERSED 2MG/HR, NEOSYNNEPHRINE 1.5MCG, LEVEPHED 0.04MCG, VASOPRESSOR 0.02 VS STABLE EXCEPT HR IS GLENDA 110'S. PT WAS DECIDED FOR DNR. LEGAL DOCUMENT WAS CONFIRMED WITH MD BY CHARGE NURSE NICHOLAS. F/C IS ON. CHEST TUBE ON RIGHT SIDE.
[2021-03-22 07:58] LABS: WHITE BLOOD COUNT (AUTO) 31.7 K/uL (4.8-10.8)
[2021-03-22 07:59] LABS: NEUTROPHILS % (AUTO) 97.1 % (40.0-70.0)
[2021-03-22 08:39] LABS: POTASSIUM 8.8 mmol/L (3.5-5.1)
[2021-03-22 08:40] LABS: CALCIUM 6.8 mg/dL (8.4-11.0)
[2021-03-22] MEDS: ENOXAPARIN SODIUM 40 MG/0.4 ML SYRINGE SUBCUT SCH (08:40)
[2021-03-22 08:41] LABS: CREATININE 7.83 mg/dL (0.55-1.30)
[2021-03-22] MEDS: COLCHICINE 0.6 MG TABLET PO SCH (08:41)
[2021-03-22] MEDS: PANTOPRAZOLE SODIUM 40 MG/VIAL (PROTONIX) IVP SCH (08:41)
[2021-03-22] MEDS: MEROPENEM 1 GM in NS 100 ML IV SCH (08:43)
[2021-03-22] MEDS ORDERED: SODIUM POLYSTYRENE SULFONATE 15 GM/60 ML UDBTL PO ONE ×2 (09:00→11:45)
[2021-03-22] MEDS ORDERED: DEXTROSE 50% JECT 50 ML DISP.SYRIN IVP ONE (09:00)
[2021-03-22] MEDS ORDERED: INSULIN REGULAR, HUMAN 100 UNITS/ML, 10 ML VIAL IV ONE (09:00)
--- NOTE | 2021-03-22 10:52 | NUR ---
CRITICAL VALUE CALLED FROM LAB: k+ 8.8, WBC 31.7. [id number], CR.6.8 DR. BUCHANAN CALL[address] BUCHANAN CALLED BACK @10:50AM HE SAID PT ISN'T CANDIDATE FOR HD DUE TO CURRENT STATUS. Addendum: 03/22/21 at 1103 by Thirty one quencher operator NOTIFIED DR. HERRERA, FAMILY CHANGED MIND AND PUT PT BACK TO FULL CODE AGAIN. PT WAS PUT ON DNR LAST BY FAMILY. DR. PACHECO WALKED IN THE MORNING @0900, SAID FAMILY CALLED HIM AND NOTIFIED HIM TO CHANGE PT TO FULL CODE. PT IS ON FULL CODE AGAIN. SINCE THEN.
[2021-03-22 11:26] LABS: ERYTHROCYTE SEDIMENTATION RATE 6 MM/HR (0-15)
[2021-03-22 11:27] LABS: C-REACTIVE PROTEIN QUANT 15.1 mg/dL (0-0.5)
[2021-03-22] MEDS ORDERED: SODIUM BICARBONATE 8.4% JECT 50 MEQ/50 ML SYRINGE IVP ONE ×2 (11:45→18:30)
[2021-03-22] MEDS: MIDAZOLAM IN NACL,ISO-OSMOT/PF 100 ML IV PRN (13:04)
[2021-03-22] MEDS ORDERED: VASOPRESSIN 20 UNITS/ML VIAL IV ONE (13:59)
[2021-03-22] MEDS: PHENYLEPHRINE HCL 100 MG in NS 240 ML IV PRN (14:35)
[2021-03-22] MEDS: VASOPRESSIN 40 UNITS in NS 38 ML IV PRN (14:36)
[2021-03-22] MEDS: DEXAMETHASONE SOD PHOSPHATE 10 MG/ML VIAL IVP SCH (14:41)
--- NOTE | 2021-03-22 18:21 | NUR ---
Informed pt is having runs of VT. Pt has a pulse. HR 116 and rhythm wide. Call out to Dr. Morales.
--- NOTE | 2021-03-22 18:22 | NUR ---
Dr. Morales returned and bedside RN informed him of the rhythm. Orders left.
--- NOTE | 2021-03-22 18:29 | NUR ---
PT'S HR TURNED TO VT. HR 120'S. DR. GRANADO WAS PAGED. DR. GRANADO ORDERED NACO3 2 VIALS WHICH CONNOLLY OVERIDER AND GIVEN STAT. DR. GRANADO ALSO ORDERED TO START AMIODARONE DRIP. PHARMACY WAS CALLED TO SEND MEDICINE. PT HAS NO URINE SINCE YESTERDAY, DR. GRANADO ALSO ENDORSED.
[2021-03-22] MEDS ORDERED: AMIODARONE HCL 150 MG in D5W 100 ML IV ONE (18:30)
[2021-03-22] MEDS ORDERED: SODIUM BICARBONATE 8.4% JECT 50 MEQ/50 ML SYRINGE ONE (18:31)
--- NOTE | 2021-03-22 18:50 | NUR ---
PAGED FOR CONSULT ORDERING PHYSICIAN: DR. MUNOZ REASON FOR CONSULT: WIDE COMPLEX TACHYCARDIA DIALED: [phone] SPOKE: SEGUNDO
[2021-03-22] MEDS ORDERED: CALCIUM GLUCONATE 1 GM in NS 100 ML IV ONE (19:00)
[2021-03-22] MEDS ORDERED: AMIODARONE HCL 450 MG in D5W 241 ML IV SCH (19:00)
--- NOTE | 2021-03-22 19:25 | NUR ---
Report received from day RN. Many unanswered questions. Assuming care now.
--- NOTE | 2021-03-22 19:30 | NUR ---
Patient's HR decreasing, staff donned PPE and went in room to check pulse. No pulse obtained. CPR began. See CODE blue report.
--- NOTE | 2021-03-22 19:30 | NUR ---
RT NOTES AT BEDSIDE WHEN ANTONELLA TITUS CALLED DUE TO ABSENCE OF PULSE AT 1930. CPR STARTED, DR MERCADO RESPONDED TO ANTONELLA. ROSC ACHIEVED AT 1944. ABG AND EKG ORDERED AND OBTAINED.
--- NOTE | 2021-03-22 19:35 | NUR ---
During CODE, patient noted to have chest tube which was not endorsed by previous RN. No water in water chamber. Sterile water placed in chamber immediately and 20cm H2O suction applied.
--- NOTE | 2021-03-22 19:44 | NUR ---
Pulse obtained. CPR stopped. Continues to be on vasopressors.
--- NOTE | 2021-03-22 19:47 | NUR ---
PAGED STAT DIALED: [phone]
--- NOTE | 2021-03-22 19:54 | NUR ---
Patient's HR began decreasing again, no pulse palpated. CPR began. See CODE blue report.
--- NOTE | 2021-03-22 19:54 | NUR ---
RT NOTES ANTONELLA TITUS CALLED AT 1953 DUE TO ABSENCE OF PULSE, DR MERCADO ALREADY AT BEDSIDE. CPR STARTED. UNABLE TO ACHIEVE ROSC. ANTONELLA TITUS CALLED AT 2005.
--- NOTE | 2021-03-22 20:05 | NUR ---
Dr White speaking with Libertad who has been a friend of the patient for many years. She says he is alienated from family.
--- NOTE | 2021-03-22 20:06 | NUR ---
Patient pronounced by Dr White. No pulse palpated. No electrical activity on monitor. Patient still on vent.
--- NOTE | 2021-03-22 20:25 | NUR ---
[facility] called and stated they must be called during business hours. [phone]
--- NOTE | 2021-03-22 20:30 | NUR ---
NOTIFIED OF PT EXPIRATION DR.PALIWAL Rincon [phone] NAVI DIAZ -SPOKE TO: KARLA LEE [phone] GLORIA GARZA -SPOKE TO: HANNA HILTON [phone] -SPOKE TO: ROSALES
== END 2021-03-22 22:53 | DRG 720 ==
LOC: SED 00:01 → STU 06:05 → SMU 03-06 12:28 → SIC 03-15 08:41
PROVIDERS: ADMIT Preventive Medicine Preventive Medicine/Occupational Environmental Medicine; ATTEND Preventive Medicine Preventive Medicine/Occupational Environmental Medicine
PROC: 5A0955A Assistance with Respiratory Ventilation, Greater than 96 Consecutive Hours, High Flow/Velocity Cannula (ICD-10-PCS; 2021-03-13)
PROC: XW033H5 Introduction of Tocilizumab into Peripheral Vein, Percutaneous Approach, New Technology Group 5 (ICD-10-PCS; 2021-03-15)
PROC: 5A1945Z Respiratory Ventilation, 24-96 Consecutive Hours (ICD-10-PCS; principal; 2021-03-19)
PROC: 0BH17EZ Insertion of Endotracheal Airway into Trachea, Via Natural or Artificial Opening (ICD-10-PCS; 2021-03-19)
PROC: 0W9930Z Drainage of Right Pleural Cavity with Drainage Device, Percutaneous Approach (ICD-10-PCS; 2021-03-20)
PROC: 5A12012 Performance of Cardiac Output, Single, Manual (ICD-10-PCS; 2021-03-22)
DX: A41.9 Sepsis, unspecified organism (principal); J96.01 Acute respiratory failure with hypoxia; J12.82 Pneumonia due to coronavirus disease 2019; R65.21 Severe sepsis with septic shock; E43 Unspecified severe protein-calorie malnutrition; U07.1 COVID-19; E87.2 Acidosis; D69.6 Thrombocytopenia, unspecified; Z66 Do not resuscitate; N17.9 Acute kidney failure, unspecified; E87.1 Hypo-osmolality and hyponatremia; E87.5 Hyperkalemia; K13.79 Other lesions of oral mucosa; E83.41 Hypermagnesemia; E83.39 Other disorders of phosphorus metabolism; N18.9 Chronic kidney disease, unspecified; E66.01 Morbid (severe) obesity due to excess calories; F41.9 Anxiety disorder, unspecified; J93.83 Other pneumothorax; I46.9 Cardiac arrest, cause unspecified; E83.52 Hypercalcemia; R73.9 Hyperglycemia, unspecified; Z99.11 Dependence on respirator [ventilator] status; Z79.01 Long term (current) use of anticoagulants; Z91.19 Patient's noncompliance with other medical treatment and regimen; Z68.26 Body mass index [BMI] 26.0-26.9, adult
CPT/HCPCS: 36415; 36600; 71045; 76700-TC; 80048; 80053; 82728; 82803-TC; 83605; 83615; 83735; 83880; 84100; 84484; 85007; 85025; 85027; 85379; 85384; 85610-TC; 85651-TC; 85730-TC; 86140; 87040-TC; 87070-TC; 87081; 87086; 87205-TC; 92950; 93005; 94003; 94640; 94760; 96361; 96365; 96375; 97110-GP; 97112-GP; 97116-GP; 97530-GP; 99291; C9113; G0378; J0282; J0330; J0456; J0610; J0696; J1100; J1450; J1650; J1815; J1956; J2060; J2185; J2270; J2370; J2543; J2704; J3262; J3490; J7050; J7060; J8540; Q0144